=== PATIENT | female | born 2000 | race Hispanic/Latino ===

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

== ENCOUNTER 2022-02-06 18:58 | Emergency (ER) | payer OTHER ==
--- OUTSIDE RECORDS SUMMARY | 2022-02-06 19:03 | XMS REPORT | Continuity of Care Document ---
:2000 Author Organization [facility] t Address [address] [place] [address] [address] [place] [address] Care Team Providers Name Role Phone Jerellavinia Nikki Primary Care Physician Keli Attending Clinician Unavailable Nikki Upton MD Attending Clinician Nikki UPTON Attending Clinician Unavailable Doctor Unassigned, Name Attending Clinician Unavailable Chuck DUNBAR Attending Clinician CHUCK Attending Clinician Unavailable Mary Rudolph Attending Clinician Payers Payer Name Policy Type Policy Number Effective Date Expiration Date S ource Problems Condition Condition Condition Status Onset Resolution Last Treating Co mments Source Name Details Category Date Date Treatment Clinician Date No known No known Disease Unive rs active active ity of problems problems [facility] Allergies, Adverse Reactions, Alerts Allergy Allergy Status Severity Reaction(s) Onset Inactive Treating Comm ents Source Name Type Date Date Clinician Azithrom Propensi Active Rash Univer s ycin ty to 02-13 ity of adverse 00:00: [place] reaction 00 Medical s Branch AZITHROM DRUG Active Rash Univers YCIN INGREDI 02-13 ity of 00:00: [place] 00 Medical Branch Zithroma Adverse Active rash, Common x Reaction itching and Spi rit swelling - [facility] Social History Social Habit Start Date Stop Date Quantity Comments Source Exposure to Not sure [facility]-CoV-2 [place] [facility] (event) Branch Alcohol intake 2021-04-22 2021-04-22 Current University of 00:00:00 00:00:00 non-drinker of [facility] alcohol Branch (finding) Tobacco use and 2012-11-06 2012-11-06 Never used Universit y of exposure 00:00:00 00:00:00 [facility] Tobacco Comment 2012-11-06 2012-11-06 N/A Universit y of 00:00:00 00:00:00 [facility] Sex Assigned At [birth year] Universit y of 00:00:00 00:00:00 [facility] Smoking Status Start Date Stop Date Source Never smoker [facility] Medications Ordered Filled Start Stop Current Ordering Indication Dosage Frequency Signature Comments Components Source Medication Medication Date Date Medication? Clinician (SIG) Name Name ketorolac 2019-08- No 15mg 15 mg, Unive rs (TORADOL) 09-16 Slow IV ity of injection 01:26: 01:42 Push, [place] 15 mg 00 :00 ONCE, 1 Medical dose, [facility] Branch 07/16/20 at 1930, RADHA
Fa culty member approving Restricted medication : ANDREW WOODS ondansetron 2019-08- No 4mg 4 mg, Slow Univers (ZOFRAN 09-16 IV Push, ity of (PF)) 00:10: 01:01 ONCE, 1 [place] injection 4 00 :00 dose, [facility] ical mg 07/16/20 Branch at 1815, RADHA famotidine 2019-08 2020- No 20mg 20 mg, Univ ers (PEPCID -07-17 Slow IV ity of (PF)) 00:10: 01:02 Push, [place] injection 00 :00 ONCE, 1 Medical 20 mg dose, [facility] Branch 07/16/20 at 1815, RADHA famotidine 2019-08 Yes [id number] 40mg Take 1 Univers (PEPCID) 40 1-19 tablet by ity of mg tablet 00:00: mouth [place] 00 daily. Medical Branch ondansetron 2019-08 Yes [id number] 4mg Take 1 Univers (ZOFRAN) 4 1-19 tablet by ity of mg tablet 00:00: mouth [place] 00 every 8 Medical (eight) Branch hours as needed for Nausea and Vomiting (N/V). methocarbam 2020- Yes [id number] 500mg Take 1 Univers oL 1-19 tablet by ity of (ROBAXIN) 00:00: mouth 3 [place] 500 mg 00 (three) Medical tablet times Branch daily as needed for Pain (scale 4-6). ibuprofen 2019- Yes [id number] 600mg Take 1 Univers 600 mg 1-19 tablet by ity of tablet 00:00: mouth [place] 00 every 8 Medical (eight) Branch hours as needed for Pain (scale 4-6). famotidine 2019- Yes [id number] 40mg Take 1 Univers (PEPCID) 40 1-19 tablet by ity of mg tablet 00:00: mouth [place] 00 daily. Medical Branch ondansetron 2019-08 Yes [id number] 4mg Take 1 Univers (ZOFRAN) 4 1-19 tablet by ity of mg tablet 00:00: mouth [place] 00 every 8 Medical (eight) Branch hours as needed for Nausea and Vomiting (N/V). methocarbam 2019- Yes [id number] 500mg Take 1 Univers oL 1-19 tablet by ity of (ROBAXIN) 00:00: mouth 3 [place] 500 mg 00 (three) Medical tablet times Branch daily as needed for Pain (scale 4-6). ibuprofen 2019- Yes [id number] 600mg Take 1 Univers 600 mg 1-19 tablet by ity of tablet 00:00: mouth [place] 00 every 8 Medical (eight) Branch hours as needed for Pain (scale 4-6). famotidine 2020- Yes [id number] 40mg Take 1 Univers (PEPCID) 40 1-19 tablet by ity of mg tablet 00:00: mouth [place] 00 daily. Medical Branch ondansetron 2019- Yes [id number] 4mg Take 1 Univers (ZOFRAN) 4 1-19 tablet by ity of mg tablet 00:00: mouth [place] 00 every 8 Medical (eight) Branch hours as needed for Nausea and Vomiting (N/V). methocarbam 2020- Yes [id number] 500mg Take 1 Univers oL 1-19 tablet by ity of (ROBAXIN) 00:00: mouth 3 [place] 500 mg 00 (three) Medical tablet times Branch daily as needed for Pain (scale 4-6). ibuprofen 2019-08 Yes [id number] 600mg Take 1 Univers 600 mg 1-19 tablet by ity of tablet 00:00: mouth [place] 00 every 8 Medical (eight) Branch hours as needed for Pain (scale 4-6). famotidine 2019-08 Yes [id number] 40mg Take 1 Univers (PEPCID) 40 1-19 tablet by ity of mg tablet 00:00: mouth [place] 00 daily. Medical Branch ondansetron 2019-08 Yes [id number] 4mg Take 1 Univers (ZOFRAN) 4 1-19 tablet by ity of mg tablet 00:00: mouth [place] 00 every 8 Medical (eight) Branch hours as needed for Nausea and Vomiting (N/V). methocarbam 2019-08 Yes [id number] 500mg Take 1 Univers oL 1-19 tablet by ity of (ROBAXIN) 00:00: mouth 3 [place] 500 mg 00 (three) Medical tablet times Branch daily as needed for Pain (scale 4-6). ibuprofen 2019-08 Yes [id number] 600mg Take 1 Univers 600 mg 1-19 tablet by ity of tablet 00:00: mouth [place] 00 every 8 Medical (eight) Branch hours as needed for Pain (scale 4-6). famotidine 2019-08 Yes [id number] 40mg Take 1 Univers (PEPCID) 40 1-19 tablet by ity of mg tablet 00:00: mouth [place] 00 daily. Medical Branch ondansetron 2019-08 Yes [id number] 4mg Take 1 Univers (ZOFRAN) 4 1-19 tablet by ity of mg tablet 00:00: mouth [place] 00 every 8 Medical (eight) Branch hours as needed for Nausea and Vomiting (N/V). methocarbam 2019-08 Yes [id number] 500mg Take 1 Univers oL 1-19 tablet by ity of (ROBAXIN) 00:00: mouth 3 [place] 500 mg 00 (three) Medical tablet times Branch daily as needed for Pain (scale 4-6). ibuprofen 2019-08 Yes [id number] 600mg Take 1 Univers 600 mg 1-19 tablet by ity of tablet 00:00: mouth [place] 00 every 8 Medical (eight) Branch hours as needed for Pain (scale 4-6). famotidine 2019- Yes [id number] 40mg Take 1 Univers (PEPCID) 40 1-19 tablet by ity of mg tablet 00:00: mouth [place] 00 daily. Medical Branch ondansetron 2019-08 Yes [id number] 4mg Take 1 Univers (ZOFRAN) 4 1-19 tablet by ity of mg tablet 00:00: mouth [place] 00 every 8 Medical (eight) Branch hours as needed for Nausea and Vomiting (N/V). methocarbam 2019-08 Yes [id number] 500mg Take 1 Univers oL 1-19 tablet by ity of (ROBAXIN) 00:00: mouth 3 [place] 500 mg 00 (three) Medical tablet times Branch daily as needed for Pain (scale 4-6). ibuprofen 2019-08 Yes [id number] 600mg Take 1 Univers 600 mg 1-19 tablet by ity of tablet 00:00: mouth [place] 00 every 8 Medical (eight) Branch hours as needed for Pain (scale 4-6). famotidine 2019-08 Yes [id number] 40mg Take 1 Univers (PEPCID) 40 1-19 tablet by ity of mg tablet 00:00: mouth [place] 00 daily. Medical Branch ondansetron 2019-08 Yes [id number] 4mg Take 1 Univers (ZOFRAN) 4 1-19 tablet by ity of mg tablet 00:00: mouth [place] 00 every 8 Medical (eight) Branch hours as needed for Nausea and Vomiting (N/V). methocarbam 2019-08 Yes [id number] 500mg Take 1 Univers oL 1-19 tablet by ity of (ROBAXIN) 00:00: mouth 3 [place] 500 mg 00 (three) Medical tablet times Branch daily as needed for Pain (scale 4-6). ibuprofen 2019-08 Yes [id number] 600mg Take 1 Univers 600 mg 1-19 tablet by ity of tablet 00:00: mouth [place] 00 every 8 Medical (eight) Branch hours as needed for Pain (scale 4-6). Flagyl Flagyl 2019- No Anjali 1 tablet Com mon 12-26 [facility] 00:00: 00:00 - [facility] 00 :00 [facility] No known No Univers medications ity [facility] No known No Univers medications ity [facility] Immunizations Ordered Immunization Filled Immunization Date Status Commen ts Source Name Name Meningococcal 2012-11-06 Completed University of Polysaccharide 00:00:00 [place] Medi arsen (groups A, C, Y and Branc h W-135) conjugate vaccine (MCV4P) TDAP 2012-11-06 Completed University of 00:00:00 [facility] Meningococcal 2012-11-06 Completed University of Polysaccharide 00:00:00 [place] Medi arsen (groups A, C, Y and Branc h W-135) conjugate vaccine (MCV4P) TDAP 2012-11-06 Completed University of 00:00:00 [facility] Meningococcal 2012-11-06 Completed University of Polysaccharide 00:00:00 [place] Medi arsen (groups A, C, Y and Branc h W-135) conjugate vaccine (MCV4P) TDAP 2012-11-06 Completed University of 00:00:00 [facility] Meningococcal 2012-11-06 Completed University of Polysaccharide 00:00:00 [place] Medi arsen (groups A, C, Y and Branc h W-135) conjugate vaccine (MCV4P) TDAP 2012-11-06 Completed University of 00:00:00 [facility] Meningococcal 2012-11-06 Completed University of Polysaccharide 00:00:00 [place] Medi arsen (groups A, C, Y and Branc h W-135) conjugate vaccine (MCV4P) TDAP 2012-11-06 Completed University of 00:00:00 [facility] Meningococcal 2012-11-06 Completed University of Polysaccharide 00:00:00 [place] Medi arsen (groups A, C, Y and Branc h W-135) conjugate vaccine (MCV4P) TDAP 2012-11-06 Completed University of 00:00:00 [facility] Meningococcal 2012-11-06 Completed University of Polysaccharide 00:00:00 [place] Medi arsen (groups A, C, Y and Branc h W-135) conjugate vaccine (MCV4P) TDAP 2012-11-06 Completed University of 00:00:00 [facility] Meningococcal 2012-11-06 Completed University of Polysaccharide 00:00:00 [place] Medi arsen (groups A, C, Y and Branc h W-135) conjugate vaccine (MCV4P) TDAP 2012-11-06 Completed University of 00:00:00 [facility] Meningococcal 2012-11-06 Completed University of Polysaccharide 00:00:00 [place] Medi arsen (groups A, C, Y and Branc h W-135) conjugate vaccine (MCV4P) TDAP 2012-11-06 Completed University of 00:00:00 [facility] Varicella 2007-09-13 Completed University of (varivax)(chicken 00:00:00 [place] M edical pox) Branch Varicella 2007-09-13 Completed University of (varivax)(chicken 00:00:00 [place] [facility] edical pox) Branch Varicella 2007-09-13 Completed University of (varivax)(chicken 00:00:00 [place] [facility] edical pox) Branch Varicella 2007-09-13 Completed University of (varivax)(chicken 00:00:00 [place] [facility] edical pox) Branch Varicella 2007-09-13 Completed University of (varivax)(chicken 00:00:00 [place] [facility] edical pox) Branch Varicella 2007-09-13 Completed University of (varivax)(chicken 00:00:00 [place] [facility] edical pox) Branch Varicella 2007-09-13 Completed University of (varivax)(chicken 00:00:00 [place] [facility] edical pox) Branch Varicella 2007-09-13 Completed University of (varivax)(chicken 00:00:00 [place] [facility] edical pox) Branch Varicella 2007-09-13 Completed University of (varivax)(chicken 00:00:00 [place] [facility] ed[facility] pox) Branch HEPATITIS A 2006-11-20 Completed University of 00:00:00 [facility] HEPATITIS A 2006-11-20 Completed University of 00:00:00 [facility] HEPATITIS A 2006-11-20 Completed University of 00:00:00 [facility] HEPATITIS A 2006-11-20 Completed University of 00:00:00 [facility] HEPATITIS A 2006-11-20 Completed University of 00:00:00 [facility] HEPATITIS A 2006-11-20 Completed University of 00:00:00 [facility] HEPATITIS A 2006-11-20 Completed University of 00:00:00 [facility] HEPATITIS A 2006-11-20 Completed University of 00:00:00 [facility] HEPATITIS A 2006-11-20 Completed University of 00:00:00 [facility] HEPATITIS A 2006-02-23 Completed University of 00:00:00 [facility] HEPATITIS A 2006-02-23 Completed University of 00:00:00 [facility] HEPATITIS A 2006-02-23 Completed University of 00:00:00 [facility] HEPATITIS A 2006-02-23 Completed University of 00:00:00 [facility] HEPATITIS A 2006-02-23 Completed University of 00:00:00 [facility] HEPATITIS A 2006-02-23 Completed University of 00:00:00 [facility] HEPATITIS A 2006-02-23 Completed University of 00:00:00 [facility] Branch HEPATITIS A 2006-02-23 Completed University of 00:00:00 [facility] Branch HEPATITIS A 2006-02-23 Completed University of 00:00:00 [facility] Branch DTAP 2005-07-25 Completed University of 00:00:00 [facility] Branch MMR 2005-07-25 Completed University of 00:00:00 [place] [facility] Polio (IPV/OPV) 2005-07-25 Completed Universit y of 00:00:00 [facility] Branch DTAP 2005-07-25 Completed University of 00:00:00 [facility] MMR 2005-07-25 Completed University of 00:00:00 [facility] Branch Polio (IPV/OPV) 2005-07-25 Completed Universit y of 00:00:00 [facility] DTAP 2005-07-25 Completed University of 00:00:00 [facility] MMR 2005-07-25 Completed University of 00:00:00 [place] [facility] Polio (IPV/OPV) 2005-07-25 Completed Universit y of 00:00:00 [facility] Branch DTAP 2005-07-25 Completed University of 00:00:00 [facility] MMR 2005-07-25 Completed University of 00:00:00 [place] [facility] Polio (IPV/OPV) 2005-07-25 Completed Universit y of 00:00:00 [facility] Branch DTAP 2005-07-25 Completed University of 00:00:00 [facility] MMR 2005-07-25 Completed University of 00:00:00 [place] [facility] Polio (IPV/OPV) 2005-07-25 Completed Universit y of 00:00:00 [facility] Branch DTAP 2005-07-25 Completed University of 00:00:00 [facility] MMR 2005-07-25 Completed University of 00:00:00 [place] [facility] Polio (IPV/OPV) 2005-07-25 Completed Universit y of 00:00:00 [facility] DTAP 2005-07-25 Completed University of 00:00:00 [facility] MMR 2005-07-25 Completed University of 00:00:00 [place] [facility] Polio (IPV/OPV) 2005-07-25 Completed Universit y of 00:00:00 [facility] DTAP 2005-07-25 Completed University of 00:00:00 [facility] MMR 2005-07-25 Completed University of 00:00:00 [facility] Polio (IPV/OPV) 2005-07-25 Completed Universit y of 00:00:00 [facility] DTAP 2005-07-25 Completed University of 00:00:00 [facility] MMR 2005-07-25 Completed University of 00:00:00 [facility] Polio (IPV/OPV) 2005-07-25 Completed Universit y of 00:00:00 [facility] Pneumococcal 7 2003-03-14 Completed University of Conjugate, PCV7 00:00:00 [place] [facility] (Prevnar7) Branch Pneumococcal 7 2003-03-14 Completed University of Conjugate, PCV7 00:00:00 [place] [facility] ical (Prevnar7) Branch Pneumococcal 7 2003-03-14 Completed University of Conjugate, PCV7 00:00:00 [place] [facility] ical (Prevnar7) Branch Pneumococcal 7 2003-03-14 Completed University of Conjugate, PCV7 00:00:00 [place] [facility] ical (Prevnar7) Branch Pneumococcal 7 2003-03-14 Completed University of Conjugate, PCV7 00:00:00 [place] [facility] ical (Prevnar7) Branch Pneumococcal 7 2003-03-14 Completed University of Conjugate, PCV7 00:00:00 [place] [facility] ical (Prevnar7) Branch Pneumococcal 7 2003-03-14 Completed University of Conjugate, PCV7 00:00:00 [place] [facility] ical (Prevnar7) Branch Pneumococcal 7 2003-03-14 Completed University of Conjugate, PCV7 00:00:00 [place] [facility] ical (Prevnar7) Branch Pneumococcal 7 2003-03-14 Completed University of Conjugate, PCV7 00:00:00 [place] [facility] ical (Prevnar7) Branch DTAP 2002-11-12 Completed University of 00:00:00 [facility] Pneumococcal 7 2002-11-12 Completed University of Conjugate, PCV7 00:00:00 [place] [facility] ical (Prevnar7) Branch DTAP 2002-11-12 Completed University of 00:00:00 [facility] Pneumococcal 7 2002-11-12 Completed University of Conjugate, PCV7 00:00:00 [place] [facility] ical (Prevnar7) Branch DTAP 2002-11-12 Completed University of 00:00:00 [facility] Pneumococcal 7 2002-11-12 Completed University of Conjugate, PCV7 00:00:00 [place] [facility] ical (Prevnar7) Branch DTAP 2002-11-12 Completed University of 00:00:00 [facility] Pneumococcal 7 2002-11-12 Completed University of Conjugate, PCV7 00:00:00 [place] [facility] (Prevnar7) Branch DTAP 2002-11-12 Completed University of 00:00:00 [facility] Pneumococcal 7 2002-11-12 Completed University of Conjugate, PCV7 00:00:00 [place] [facility] (Prevnar7) Branch DTAP 2002-11-12 Completed University of 00:00:00 [facility] Pneumococcal 7 2002-11-12 Completed University of Conjugate, PCV7 00:00:00 [place] [facility] (Prevnar7) Branch DTAP 2002-11-12 Completed University of 00:00:00 [facility] Pneumococcal 7 2002-11-12 Completed University of Conjugate, PCV7 00:00:00 [place] [facility] (Prevnar7) Branch DTAP 2002-11-12 Completed University of 00:00:00 [facility] Pneumococcal 7 2002-11-12 Completed University of Conjugate, PCV7 00:00:00 [place] [facility] (Prevnar7) Branch DTAP 2002-11-12 Completed University of 00:00:00 [facility] Pneumococcal 7 2002-11-12 Completed University of Conjugate, PCV7 00:00:00 [place] [facility] (Prevnar7) Branch HIB 4 Dose Schedule 2002-07-23 Completed Unive rsity of 00:00:00 [facility] MMR 2002-07-23 Completed University of 00:00:00 [facility] Varicella 2002-07-23 Completed University of (varivax)(chicken 00:00:00 [place] [facility] pox) Branch HIB 4 Dose Schedule 2002-07-23 Completed Unive rsity of 00:00:00 [facility] MMR 2002-07-23 Completed University of 00:00:00 [facility] Varicella 2002-07-23 Completed University of (varivax)(chicken 00:00:00 [place] [facility] pox) Branch HIB 4 Dose Schedule 2002-07-23 Completed Unive rsity of 00:00:00 [facility] MMR 2002-07-23 Completed University of 00:00:00 [facility] Varicella 2002-07-23 Completed University of (varivax)(chicken 00:00:00 [place] M edical pox) Branch HIB 4 Dose Schedule 2002-07-23 Completed Unive rsity of 00:00:00 [facility] MMR 2002-07-23 Completed University of 00:00:00 [facility] Varicella 2002-07-23 Completed University of (varivax)(chicken 00:00:00 [place] M edical pox) Branch HIB 4 Dose Schedule 2002-07-23 Completed Unive rsity of 00:00:00 [facility] MMR 2002-07-23 Completed University of 00:00:00 [facility] Varicella 2002-07-23 Completed University of (varivax)(chicken 00:00:00 [place] M edical pox) Branch HIB 4 Dose Schedule 2002-07-23 Completed Unive rsity of 00:00:00 [facility] MMR 2002-07-23 Completed University of 00:00:00 [facility] Varicella 2002-07-23 Completed University of (varivax)(chicken 00:00:00 [place] M edical pox) Branch HIB 4 Dose Schedule 2002-07-23 Completed Unive rsity of 00:00:00 [facility] MMR 2002-07-23 Completed University of 00:00:00 [facility] Varicella 2002-07-23 Completed University of (varivax)(chicken 00:00:00 [place] M edical pox) Branch HIB 4 Dose Schedule 2002-07-23 Completed Unive rsity of 00:00:00 [facility] MMR 2002-07-23 Completed University of 00:00:00 [facility] Varicella 2002-07-23 Completed University of (varivax)(chicken 00:00:00 [place] M edical pox) Branch HIB 4 Dose Schedule 2002-07-23 Completed Unive rsity of 00:00:00 [facility] MMR 2002-07-23 Completed University of 00:00:00 [facility] Varicella 2002-07-23 Completed University of (varivax)(chicken 00:00:00 [place] M edical pox) Branch Hep B, Adol or Pedi 2002-04-19 Completed Unive rsity of Dosage 00:00:00 [facility] Polio (IPV/OPV) 2002-04-19 Completed Universit y of 00:00:00 [facility] Hep B, Adol or Pedi 2002-04-19 Completed Unive rsity of Dosage 00:00:00 [facility] Polio (IPV/OPV) 2002-04-19 Completed Universit y of 00:00:00 [place] [facility] Hep B, Adol or Pedi 2002-04-19 Completed Unive rsity of Dosage 00:00:00 [facility] Polio (IPV/OPV) 2002-04-19 Completed Universit y of 00:00:00 [facility] Hep B, Adol or Pedi 2002-04-19 Completed Unive rsity of Dosage 00:00:00 [facility] Polio (IPV/OPV) 2002-04-19 Completed Universit y of 00:00:00 [facility] Hep B, Adol or Pedi 2002-04-19 Completed Unive rsity of Dosage 00:00:00 [facility] Polio (IPV/OPV) 2002-04-19 Completed Universit y of 00:00:00 [facility] Hep B, Adol or Pedi 2002-04-19 Completed Unive rsity of Dosage 00:00:00 [facility] Polio (IPV/OPV) 2002-04-19 Completed Universit y of 00:00:00 [place] [facility] Hep B, Adol or Pedi 2002-04-19 Completed Unive rsity of Dosage 00:00:00 [facility] Polio (IPV/OPV) 2002-04-19 Completed Universit y of 00:00:00 [facility] Hep B, Adol or Pedi 2002-04-19 Completed Unive rsity of Dosage 00:00:00 [facility] Polio (IPV/OPV) 2002-04-19 Completed Universit y of 00:00:00 [facility] Hep B, Adol or Pedi 2002-04-19 Completed Unive rsity of Dosage 00:00:00 [facility] Polio (IPV/OPV) 2002-04-19 Completed Universit y of 00:00:00 [facility] DTAP 2002-02-19 Completed University of 00:00:00 [facility] HIB 4 Dose Schedule 2002-02-19 Completed Unive rsity of 00:00:00 [facility] Hep B, Adol or Pedi 2002-02-19 Completed Unive rsity of Dosage 00:00:00 [facility] DTAP 2002-02-19 Completed University of 00:00:00 [place] [facility] HIB 4 Dose Schedule 2002-02-19 Completed Unive rsity of 00:00:00 [place] [facility] Hep B, Adol or Pedi 2002-02-19 Completed Unive rsity of Dosage 00:00:00 [place] [facility] DTAP 2002-02-19 Completed University of 00:00:00 [place] [facility] HIB 4 Dose Schedule 2002-02-19 Completed Unive rsity of 00:00:00 [place] [facility] Hep B, Adol or Pedi 2002-02-19 Completed Unive rsity of Dosage 00:00:00 [place] [facility] DTAP 2002-02-19 Completed University of 00:00:00 [place] [facility] HIB 4 Dose Schedule 2002-02-19 Completed Unive rsity of 00:00:00 [place] [facility] Hep B, Adol or Pedi 2002-02-19 Completed Unive rsity of Dosage 00:00:00 [place] [facility] DTAP 2002-02-19 Completed University of 00:00:00 [place] [facility] HIB 4 Dose Schedule 2002-02-19 Completed Unive rsity of 00:00:00 [place] [facility] Hep B, Adol or Pedi 2002-02-19 Completed Unive rsity of Dosage 00:00:00 [place] [facility] DTAP 2002-02-19 Completed University of 00:00:00 [place] [facility] HIB 4 Dose Schedule 2002-02-19 Completed Unive rsity of 00:00:00 [facility] Hep B, Adol or Pedi 2002-02-19 Completed Unive rsity of Dosage 00:00:00 [facility] DTAP 2002-02-19 Completed [facility] of 00:00:00 [facility] HIB 4 Dose Schedule 2002-02-19 Completed Unive rsity of 00:00:00 [facility] Hep B, Adol or Pedi 2002-02-19 Completed Unive rsity of Dosage 00:00:00 [facility] DTAP 2002-02-19 Completed University of 00:00:00 [facility] HIB 4 Dose Schedule 2002-02-19 Completed Unive rsity of 00:00:00 [facility] Hep B, Adol or Pedi 2002-02-19 Completed Unive rsity of Dosage 00:00:00 [facility] DTAP 2002-02-19 Completed University of 00:00:00 [facility] HIB 4 Dose Schedule 2002-02-19 Completed Unive rsity of 00:00:00 [facility] Hep B, Adol or Pedi 2002-02-19 Completed Unive rsity of Dosage 00:00:00 [facility] HIB 4 Dose Schedule 2001 Completed Unive rsity of 00:00:00 [facility] Pneumococcal 7 2001 Completed University of Conjugate, PCV7 00:00:00 [facility] (Pre[facility] Polio (IPV/OPV) 2001 Completed Universit y of 00:00:00 [facility] DTAP 2001 Completed University of 00:00:00 [facility] HIB 4 Dose Schedule 2001 Completed Unive rsity of 00:00:00 [facility] Pneumococcal 7 2001 Completed University of Conjugate, PCV7 00:00:00 [facility] (Pre[facility] Polio (IPV/OPV) 2001 Completed Universit y of 00:00:00 [facility] DTAP 2001 Completed University of 00:00:00 [facility] HIB 4 Dose Schedule 2001 Completed Unive rsity of 00:00:00 [facility] Pneumococcal 7 2001 Completed University of Conjugate, PCV7 00:00:00 [facility] (Pre[facility] Polio (IPV/OPV) 2001 Completed Universit y of 00:00:00 [facility] DTAP 2001 Completed University of 00:00:00 [facility] HIB 4 Dose Schedule 2001 Completed Unive rsity of 00:00:00 [facility] Pneumococcal 7 2001 Completed University of Conjugate, PCV7 00:00:00 [facility] (Pre[facility] Polio (IPV/OPV) 2001 Completed Universit y of 00:00:00 [facility] DTAP 2001 Completed University of 00:00:00 [facility] HIB 4 Dose Schedule 2001 Completed Unive rsity of 00:00:00 [facility] Pneumococcal 7 2001 Completed University of Conjugate, PCV7 00:00:00 [facility] (Pre[facility] Polio (IPV/OPV) 2001 Completed Universit y of 00:00:00 [facility] DTAP 2001 Completed University of 00:00:00 [facility] HIB 4 Dose Schedule 2001 Completed Unive rsity of 00:00:00 [facility] Pneumococcal 7 2001 Completed University of Conjugate, PCV7 00:00:00 [facility] (Pre[facility] Polio (IPV/OPV) 2001 Completed Universit y of 00:00:00 [facility] DTAP 2001 Completed University of 00:00:00 [facility] HIB 4 Dose Schedule 2001 Completed Unive rsity of 00:00:00 [facility] Pneumococcal 7 2001 Completed University of Conjugate, PCV7 00:00:00 [facility] (Pre[facility] Polio (IPV/OPV) 2001 Completed Universit y of 00:00:00 [facility] DTAP 2001 Completed University of 00:00:00 [facility] HIB 4 Dose Schedule 2001 Completed Unive rsity of 00:00:00 [facility] Pneumococcal 7 2001 Completed University of Conjugate, PCV7 00:00:00 [facility] (Pre[facility] Polio (IPV/OPV) 2001 Completed Universit y of 00:00:00 [facility] DTAP 2001 Completed University of 00:00:00 [facility] HIB 4 Dose Schedule 2001 Completed Unive rsity of 00:00:00 [facility] Pneumococcal 7 2001 Completed University of Conjugate, PCV7 00:00:00 [facility] (Pre[facility] Polio (IPV/OPV) 2001 Completed Universit y of 00:00:00 [facility] DTAP 2001 Completed University of 00:00:00 [facility] HIB 4 Dose Schedule 2001 Completed Unive rsity of 00:00:00 [facility] Pneumococcal 7 2001 Completed University of Conjugate, PCV7 00:00:00 [facility] (Pre[facility] Polio (IPV/OPV) 2001 Completed Universit y of 00:00:00 [facility] DTAP 2001 Completed University of 00:00:00 [facility] HIB 4 Dose Schedule 2001 Completed Unive rsity of 00:00:00 [facility] Pneumococcal 7 2001 Completed University of Conjugate, PCV7 00:00:00 [facility] (Pre[facility] Polio (IPV/OPV) 2001 Completed Universit y of 00:00:00 [facility] DTAP 2001 Completed University of 00:00:00 [facility] HIB 4 Dose Schedule 2001 Completed Unive rsity of 00:00:00 [facility] Pneumococcal 7 2001 Completed University of Conjugate, PCV7 00:00:00 [facility] (Pre[facility] Polio (IPV/OPV) 2001 Completed Universit y of 00:00:00 [facility] DTAP 2001 Completed University of 00:00:00 [facility] HIB 4 Dose Schedule 2001 Completed Unive rsity of 00:00:00 [facility] Pneumococcal 7 2001 Completed University of Conjugate, PCV7 00:00:00 [place] [facility] (Pre[facility] Polio (IPV/OPV) 2001 Completed Universit y of 00:00:00 [facility] DTAP 2001 Completed University of 00:00:00 [facility] HIB 4 Dose Schedule 2001 Completed Unive rsity of 00:00:00 [facility] Pneumococcal 7 2001 Completed University of Conjugate, PCV7 00:00:00 [place] [facility] (Prevnar7[facility] Polio (IPV/OPV) 2001 Completed Universit y of 00:00:00 [facility] DTAP 2001 Completed University of 00:00:00 [facility] HIB 4 Dose Schedule 2001 Completed Unive rsity of 00:00:00 [facility] Pneumococcal 7 2001 Completed University of Conjugate, PCV7 00:00:00 [place] [facility] (Prevn[facility] Polio (IPV/OPV) 2001 Completed Universit y of 00:00:00 [facility] DTAP 2001 Completed University of 00:00:00 [facility] HIB 4 Dose Schedule 2001 Completed Unive rsity of 00:00:00 [facility] Pneumococcal 7 2001 Completed University of Conjugate, PCV7 00:00:00 [facility] (Pre[facility] Polio (IPV/OPV) 2001 Completed Universit y of 00:00:00 [facility] DTAP 2001 Completed University of 00:00:00 [facility] HIB 4 Dose Schedule 2001 Completed Unive rsity of 00:00:00 [facility] Pneumococcal 7 2001 Completed University of Conjugate, PCV7 00:00:00 [facility] (Pre[facility] Polio (IPV/OPV) 2001 Completed Universit y of 00:00:00 [facility] DTAP 2001 Completed University of 00:00:00 [facility] HIB 4 Dose Schedule 2001 Completed Unive rsity of 00:00:00 [facility] Pneumococcal 7 2001 Completed University of Conjugate, PCV7 00:00:00 [facility] ical (Prevnar7) Branch Polio (IPV/OPV) 2001 Completed Universit y of 00:00:00 [facility] DTAP 2001 Completed University of 00:00:00 [facility] Hep B, Adol or Pedi 2001 Completed Unive rsity of Dosage 00:00:00 [facility] Hep B, Adol or Pedi 2001 Completed Unive rsity of Dosage 00:00:00 [facility] Hep B, Adol or Pedi 2001 Completed Unive rsity of Dosage 00:00:00 [facility] Hep B, Adol or Pedi 2001 Completed Unive rsity of Dosage 00:00:00 [facility] Hep B, Adol or Pedi 2001 Completed Unive rsity of Dosage 00:00:00 [facility] Hep B, Adol or Pedi 2001 Completed Unive rsity of Dosage 00:00:00 [facility] Hep B, Adol or Pedi 2001 Completed Unive rsity of Dosage 00:00:00 [facility] Hep B, Adol or Pedi 2001 Completed Unive rsity of Dosage 00:00:00 [facility] Hep B, Adol or Pedi 2001 Completed Unive rsity of Dosage 00:00:00 [facility] Vital Signs Vital Name Observation Time Observation Value Comments Source Systolic blood 2021-04-22 20:24:00 122 mm[Hg] Univer sity of pressure [facility] Diastolic blood 2021-04-22 20:24:00 70 mm[Hg] Unive rsity of pressure [facility] Heart rate 2021-04-22 20:24:00 66 /min Universi ty of [facility] Body temperature 2021-04-22 20:24:00 37 Kiley Univ ersity of [facility] Respiratory rate 2021-04-22 20:24:00 18 /min Univ ersity of [facility] Body height 2021-04-22 20:24:00 162.6 cm Universi ty of [facility] Body weight 2021-04-22 20:24:00 73.483 kg Universi ty of [facility] BMI 2021-04-22 20:24:00 27.81 kg/m2 Universi ty of [facility] Diastolic blood 2020-07-17 01:00:00 63 mm[Hg] Unive rsity of pressure [facility] Heart rate 2020-07-17 01:00:00 72 /min Universi ty of [facility] Respiratory rate 2020-07-17 01:00:00 18 /min Univ ersity of [facility] Oxygen saturation in 2020-07-17 01:00:00 99 /min University Arterial blood by [facility] Pulse oximetry Branch Systolic blood 2020-07-17 01:00:00 102 mm[Hg] Univer sity of pressure [facility] Body temperature 2020-07-16 23:19:00 37.06 Kiley Univ ersity of [facility] Body weight 2020-07-16 23:19:00 63.504 kg Universi ty of [facility] Systolic blood 2020-02-26 06:03:00 134 mm[Hg] Univer sity of pressure [facility] Diastolic blood 2020-02-26 06:03:00 81 mm[Hg] Unive rsity of pressure [facility] Heart rate 2020-02-26 06:03:00 96 /min Universi ty of [facility] Body temperature 2020-02-26 06:03:00 37.39 [place] Univ ersity of [facility] Respiratory rate 2020-02-26 06:03:00 18 /min [facility] Oxygen saturation in 2020-02-26 06:03:00 99 /min [facility] Arterial blood by [facility] Pulse oximetry Branch Body weight 2020-02-26 05:50:00 63.504 kg [facility] Procedures Procedure Date / Time Performing Clinician Source Performed CONSENT/REFUSAL FOR 2021-04-22 19:55:34 Doctor Unasswilliam, [facility] DIAGNOSIS AND TREATMENT [facility] XR ABDOMEN ACUTE SERIES 2020-07-17 00:33:12 [facility] LUMBAR SPINE 3 VW 2020-07-17 00:33:12 [place] [facility] POCT TEST 2020-07-16 23:42:00 Chuck [facility] LIPASE 2020-07-16 23:40:00 [facility]EL 2020-07-16 23:40:00 [facility] ([id number]) (ALB,T.PRO,BILI [facility] T,BU/BC,ALT,AST,ALK PHOS) BASIC METABOLIC PANEL 2020-07-16 23:40:00 [facility] (NA, K, CL, CO2, GLUCOSE, Medica l Branch BUN, CREATININE, CA) CBC WITH DIFF 2020-07-16 23:40:00 [facility] URINALYSIS 2020-07-16 23:40:00 [facility] CONSENT/REFUSAL FOR 2020-07-16 23:11:01 Doctor Unasswilliam, [facility] DIAGNOSIS AND TREATMENT [place] [facility] XR CHEST 1 VW 2020-02-26 06:30:51 Tr Uribe [facility] COVID-19 (ID NOW RAPID 2020-02-26 06:05:00 Tr Uribe [facility] TESTING) [facility] POCT TEST 2020-02-26 06:04:00 Tr Uribe [facility] EKG-12 LEAD 2020-02-26 05:55:48 Tr Uribe [facility] ASSIGNMENT OF BENEFITS 2020-02-26 05:33:11 Doctor Unassigned, [place] [facility] [place] [facility] NOTICE OF PRIVACY 2020-02-26 05:32:57 Doctor Unasswilliam, [facility] EMERGENCY SERVICES 2020-02-25 05:01:00 Doctor Unassigned, Marce [facility] AGREEMENTS AND [facility] AUTHORIZATIONS Encounters Start End Encounter Admission Attending Care Care Encounter Source Date/Time Date/Time Type Type Clinicians Facility Department ID 2021-09-22 Outpatient Keli [facility] [id number] Common 12:49:12 Daina [id number] [facility] 2021-05-20 2021-05-20 [facility] [id number] Univers 00:00:00 00:00:00 Ayla Azar [id number] [id number] [address] 2021-04-22 2021-04-22 [facility] [id number] Univers 14:56:28 16:14:14 Visit Ayla Azar [id number] [place] [id number] [address] 2021-04-22 2021-04-22 Outpatient R AD, [facility] [id number] Univers 15:00:00 15:00:00 AYLA pittman of [facility] 2021-04-22 2021-04-22 Orders Doctor GALVAN [id number] Univers 00:00:00 00:00:00 Only Unassigned, PETER [id number] ity of [place] [facility] 4.2.7.2.686 Gustavo as [id number] [address] 2021-02-18 2021-02-18 Outpatient [facility] [id number] Common 00:00:00 00:00:00 [facility] 2020-07-16 2020-07-16 Emergency [facility] [id number] Univers 17:15:00 20:24:00 Shinnaya Azar [id number] i ty of [place] 4.2.7.2.686 [facility] [id number] [address] 2020-07-16 2020-07-16 Emergency X CHUCK, [facility] ERT [id number] Univers 17:11:00 17:11:00 SHINTA ity [facility] 2020-02-26 2020-02-26 Emergency [place], [facility] [id number] Univers 00:47:54 02:05:00 Tr Azar [id number] i ty of [place] 4.2.7.2.686 [facility] [id number] [address] 2020-02-26 2020-02-26 Emergency X [facility] ERT [id number] Univers 00:35:00 00:35:00 ity of [facility] 2020-02-25 2020-02-25 Orders Doctor GALVAN [id number] Univers 00:00:00 00:00:00 Only Unassigned, PETER [id number] ity of [place] [facility] 4.2.7.2.686 [facility] [id number] [address] 2018-12-25 2018-12-25 Outpatient Peewee Videst [id number] Common 15:25:00 15:25:00 [facility] 2018-12-18 2018-12-18 Outpatient Peewee [place] [id number] Common 11:20:00 11:20:00 [facility] Results Test Description Test Time Test Comments Results Result Comments Source Urinalysis 2020-07-17 00:20:00 Test Item Value Reference Range Interpretation Comme nts APPEARANCE (test code = Hazy Clear A 7399554528) COLOR (test code = 1046942170) Umu Yellow A PH (test code = 6674946341) 4.8-8.0 SP GRAVITY (test code = 1.003-1.030 2802278620) GLU U QUAL (test code = Normal Normal 0388329257) BLOOD (test code = 4965701331) Negative Negative INTERFERENCE FROM ASCORBIC ACID MAY CAUSE FALSE NEGATIVE RESULT KETONES (test code = 7160084843) Negative Negative PROTEIN (test code = 2887-8) Negative Negative UROBILIN (test code = Normal Normal 6108687161) BILIRUBIN (test code = Negative Negative 5449428290) NITRITE (test code = 7851826100) Negative Negative LEUK ALVIN (test code = Negative Negative 3454347929) RBC/HPF (test code = 5983500830) See_Comment [Automated message] The system which ge nerated this result transmit rogerio reference range: 0 - 3 HP F. The reference range was not used to interpret th is result as normal/abnormal . WBC/HPF (test code = 4081945797) See_Comment [Automated message] The system which ge nerated this result transmit rogerio reference range: 0 - 5 HP F. The reference range was not used to interpret th is result as normal/abnormal . BACTERIA (test code = Moderate Negative A 8572819459) MUCOUS (test code = 9286588108) Marked Negative LPF A SQ EPITH (test code = HPF 8009340330) CA OXALATE (test code = See_Comment H [Au tomated message] The 8086833091) system which ge nerated this result transmit rogerio reference range: <=1 HPF. The reference range was not u sed to interpret this result as normal/abnormal . Lab Interpretation (test code = Abnormal 33780-9) [facility] (NA, K, CL, CO2, GLUCOSE, BUN, CREATININE, CA)2020-07-17 00:04:00 Test Item Value Reference Range Interpretation Comments NA (test code = 138 mmol/L 135-145 6248947011) K (test code = 4.0 mmol/L 3.5-5 2690608062) CL (test code = 103 mmol/L 98-108 3506480788) CO2 TOTAL (test code = 27 mmol/L 23-31 0376849816) AGAP (test code = 2-16 2412726165) BUN (test code = 10 mg/dL 7-23 5155591059) GLUCOSE (test code = 91 mg/dL 70-110 4105309224) CREATININE (test code 0.70 mg/dL 0.5-1.04 = 6243729006) CALCIUM (test code = 9.9 mg/dL 8.6-10.6 3640141306) eGFR Calculation mL/min/1.73m2 (Non-) (test code = 6974726400) eGFR Calculation mL/min/1.73m2 () (test code = 7252565930) ROBBY (test code = ROBBY) Association of Glomerular Filtration Rate (GFR) and Staging of Kidney Disease* + -+ + ---+| GFR (mL/min/1.73 m2) ?| With Kidney Damage ?| ?Without Kidney Damage+ -------+ ------+ ---------+| ?>90 ?| ?Stage one ?| ? Normal ?+ --+ -+ ----+| ?60-89 ?| ?Stage two ?| ? Decreased GFR ? + -+ + ---+| ?30-59 ?| ?Stage three ?| ? Stage three ? + -+ + ---+| ?15-29 ?| ?Stage four ? | ? Stage four ?+ --+ -+ ----+| ?<15 (or dialysis) ? ?| ?Stage five ? | ? Stage five ?+ --+ -+ ----+ *Each stage assumes the associated GFR level has been in effect for at least three months. ?Stages 1 to 5, with or without kidney disease, indicate chronic kidney disease. Notes: Determination of stages one and two (with eGFR >59mL/min/1.73 m2) requires estimation of kidney damage for at least three months as defined by structural or functional abnormalities of the kidney, manifested by either:Pathological abnormalities or Markers of kidney damage (including abnormalities in the composition of the blood or urine or abnormalities in imaging tests). [facility] (ALB, T.PRO, BILI T, BU/BC, ALT, AST, ALK PHOS)2020-07-17 00:04:00 Test Item Value Reference Range Interpretation Comments TOTAL BILI (test code = 3416147246) 0.6 mg/dL 0.1-1.1 BILI UNCON (test code = 6480697396) 0.6 mg/dL 0.1-1.1 BILI CONJ (test code = 6633133884) 0.0 mg/dL 0-0.3 T PROTEIN (test code = 6045853671) 7.8 g/dL 6.3-8.2 ALBUMIN (test code = 8381263916) 4.4 g/dL 3.5-5 ALK PHOS (test code = 6221180572) 84 U/L 34-122 ALTv (test code = 1742-6) 35 U/L 5-35 AST(SGOT) (test code = 3720546000) 28 U/L 13-40 Lab Interpretation (test code = Normal 11508-3) [facility] [id number] 00:04:00 Test Item Value Reference Range Interpretation Comments LIPASE (test code = 0330950595) 87 U/L 0-220 Lab Interpretation (test code = Normal 71980-0) [facility] with [id number] 23:53:00 Test Item Value Reference Range Interpretation Comments WBC (test code = See_Comment [Automated 2249-2) message] The sy stem which generated this result transmitted reference range : 4.50 - 13.50 10*3/?L. The reference range was not used to interpret this result as normal/abnormal . RBC (test code = See_Comment [Automated 347-8) message] The sy stem which generated this result transmitted reference range : 4.10 - 5.10 10*6/?L. The reference range was not used to interpret this result as normal/abnormal . HGB (test code = 12.8 g/dL 12-16 718-7) HCT (test code = 39.0 % 36-45 4544-3) MCV (test code = 81.4 fL 78-95 787-2) MCH (test code = 26.7 pg 26-32 785-6) MCHC (test code = 32.8 g/dL 32-36 786-4) RDW-SD (test code = 38.7 fL 38.5-49 19690-6) RDW-CV (test code = 13.1 % 11.5-14 788-0) PLT (test code = See_Comment [Automated 057-3) message] The sy stem which generated this result transmitted reference range : 135 - 361 10*3/ ?L. The reference r cesar was not used to interpret this result as normal/abnormal . MPV (test code = 9.5 fL 9.4-13.3 71518-4) NRBC/100 WBC (test See_Comment [Automat ed code = 6497002377) message] The system which generated this result transmitted reference range : 0.0 - 10.0 /100 WBCs. The refer ence range was not u sed to interpret th is result as normal/abnormal . NRBC x10^3 (test code <0.01 See_Comment [Auto mated = 3669579238) message] The s ystem which generated this result transmitted reference range : 10*3/?L. The reference range was not used to interpret this result as normal/abnormal . GRAN MAT (NEUT) % 63.1 % (test code = 770-8) IMM GRAN % (test code 0.30 % = 2830212700) LYMPH % (test code = 27.4 % 736-9) MONO % (test code = 6.6 % 5905-5) EOS % (test code = 2.0 % 713-8) BASO % (test code = 0.6 % 706-2) GRAN MAT x10^3(ANC) 5.04 10*3/uL 1.5-10.3 (test code = 3057283155) IMM GRAN x10^3 (test <0.03 0-0.06 code = 5162764801) LYMPH x10^3 (test code 2.19 10*3/uL 0.7-7.4 = 731-0) MONO x10^3 (test code 0.53 10*3/uL 0-0.5 H = 742-7) EOS x10^3 (test code = 0.16 10*3/uL 0-0.4 711-2) BASO x10^3 (test code 0.05 10*3/uL 0-0.1 = 704-7) Lab Interpretation Abnormal (test code = 25242-6) [facility] [id number] 23:42:00 Test Item Value Reference Range Interpretation Comments POCT PREG (test code = 1605) negative On board controls acceptable with present C Line (test code = 3574) POCT PREG LOT # (test code = 3575) [id number] POCT PREG TEST DATE (test 2021-12-25 code = 3576) Lab Interpretation (test code = Normal 60246-9) [facility] (ID NOW RAPID TESTING)2020-02-26 06:32:00 Test Item Value Reference Range Interpretation Comments SARS-CoV-2 Rapid ID NOW Not Detected Not Detected (test code = 41107-2) ROBBY (test code = ROBBY) ID NOW COVID-19 Assay is an isothermal nucleic acid amplification test intended for the qualitative detection of nucleic acid from SARS-CoV-2 viral RNA in nasopharyngeal (SHEET ROLLER OPERATOR) specimens. It is used under Emergency Use Authorization (EUA) by FDA. The limit of detection (LOD) of the assay is 125 Genome Equivalents/mL. A positive result is indicative of the presence of SARS-CoV-2 RNA. ?Clinical correlation with patient history and other diagnostic information is necessary to determine patient infection status. A negative (Not Detected) result does not preclude SARS-CoV-2 infection. In patients with clinical symptoms and other tests that are consistent with SARS-CoV-2 infection, negative results should be treated as presumptive negative and a new specimen should be tested with alternative PCR molecular test. Invalid: Please collect a new specimen for repeat patient testing if clinically indicated. Lab Interpretation Normal (test code = 08179-6) [facility] [id number] 06:04:00 Test Item Value Reference Range Interpretation Comments POCT PREG (test code = 1605) negative On board controls acceptable with C present Line (test code = 3574) Lab Interpretation (test code = Normal 94368-1) [facility]"
[2022-02-06] MEDS ORDERED: IBUPROFEN 200 MG TAB PO ONE (19:34)
--- NOTE | 2022-02-06 20:26 | ER ---
Nurse's Notes [facility] Name: Taya Cha Age: 21 yrs Sex: Female : 2000 Arrival Date: 02/06/2022 Time: 19:02 Bed 11 Private MD: Diagnosis: Influenza due to identified novel influenza A virus Presentation: 02/06 19:20 Chief complaint: Patient states: I have a fever that started at 1200, DAVID, feel weak, jb4 congested,have a runny nose, cough, and a sore throat. I have been around others who have been sick. Coronavirus screen: Client presents with at least one sign or symptom that may indicate coronavirus-19. Standard/surgical mask placed on the client. Provider contacted for isolation considerations. Ebola Screen: No symptoms or risks identified at this time. Initial Sepsis Screen: Does the patient meet any 2 criteria? HR > 90 bpm. Yes Does the patient have a suspected source of infection? No. Patient's initial sepsis screen is negative. Risk Assessment: Do you want to hurt yourself or someone else? Patient reports no desire to harm self or others. Onset of symptoms was February 06, 2022. Transition of care: patient was not received from another setting of care. 19:20 Method Of Arrival: Ambulatory jb4 19:20 Acuity: MED 4 jb4 Historical: - Allergies: 19:21 Zithromax (rash); jb4 - Home Meds: 19:21 None [Active]; jb4 - PMHx: 19:21 None; jb4 - PSHx: 19:21 Tonsillectomy; wisdom teeth removed; jb4 - Immunization history:: Adult Immunizations up to date, phizer x3. - Social history:: Smoking status: unknown. Screenin:39 Abuse screen: Denies threats or abuse. Nutritional screening: No deficits noted. jb4 Tuberculosis screening: No symptoms or risk factors identified. Fall Risk None identified. Assessment: 19:26 General: Appears in no apparent distress. comfortable, Behavior is calm, cooperative, jb4 appropriate for age. Pain: Complains of pain in headache, sore throat. Neuro: Level of Consciousness is awake, alert, obeys commands, Oriented to person, place, time, situation. Cardiovascular: Patient's skin is warm and dry. Respiratory: Airway is patent Respiratory effort is even, unlabored, Respiratory pattern is regular, symmetrical. GI: No signs and/or symptoms were reported involving the gastrointestinal system. : No signs and/or symptoms were reported regarding the genitourinary system. EENT: No signs and/or symptoms were reported regarding the EENT system. Derm: Skin is intact, Skin is pink, warm \T\ dry. Musculoskeletal: Circulation, motion, and sensation intact. Range of motion: intact in all extremities. 20:39 Reassessment: Patient appears in no apparent distress at this time. Patient and/or jb4 family updated on plan of care and expected duration. Pain level reassessed. Patient is alert, oriented x 3, equal unlabored respirations, skin warm/dry/pink. Vital Signs: 19:20 BP 105 / 72; Pulse 136; Resp 18; Temp 99.5; Pulse Ox 96% on R/A; Weight 72.57 kg (R); jb4 Height 5 ft. 3 in. (160.02 cm) (R); 19:25 Temp 101.3(O); jb4 20:39 BP 102 / 67; Pulse 109; Resp 16; Temp 100.0(O); Pulse Ox 96% on R/A; jb4 19:20 Body Mass Index 28.34 (72.57 kg, 160.02 cm) jb4 ED Course: 19:02 Patient arrived in ED. jj6 19:03 Clementine Rodney FNP-C is [facility]. kb 19:03 Alfonso Costa MD is Attending Physician. kb 19:20 Alfredito Duran, RN is Primary Nurse. jb4 19:21 Triage completed. jb4 19:21 Arm band placed on right wrist. jb4 20:39 Patient has correct armband on for positive identification. Bed in low position. Call jb4 light in reach. Side rails up X 1. 20:39 No provider procedures requiring assistance completed. Patient did not have IV access jb4 during this emergency room visit. Administered Medications: 19:29 Drug: Ibuprofen 600 mg Route: PO; jb4 20:40 Follow up: Response: No adverse reaction jb4 Medication: 20:39 VIS not applicable for this client. jb4 Outcome: 20:25 Discharge ordered by . kb 20:39 Discharged to home ambulatory. jb4 20:39 Condition: stable 20:39 Discharge instructions given to patient, Instructed on discharge instructions, follow up and referral plans. medication usage, Demonstrated understanding of instructions, follow-up care, medications, Prescriptions given X 1. 20:40 Patient left the ED. jb4 Signatures: Clementine Rodney, MITER GRINDER OPERATOR-C MITER GRINDER OPERATOR-Alfredito Whelan, RN RN jb4 Zahida Stallings jj6
--- NOTE | 2022-02-06 20:26 | EDPHYS ---
Physician Documentation [facility] Name: Taya Cha Age: 21 yrs Sex: Female : 2000 Arrival Date: 02/06/2022 Time: 19:02 Bed 11 Private MD: ED Physician Alfonso Costa HPI: 02/06 20:35 This 21 yrs old Female presents to ER via Ambulatory with complaints of kb Headache, Sore Throat, Fever, Congestion. 20:35 The patient or guardian reports cough, that is intermittent, described as mild, flu kb symptoms, low-grade fever, myalgias. Onset: The symptoms/episode began/occurred yesterday. Severity of symptoms: At their worst the symptoms were moderate, in the emergency department the symptoms are unchanged. Modifying factors: The symptoms are alleviated by nothing, the symptoms are aggravated by nothing. Associated signs and symptoms: Pertinent positives: fever, rhinorrhea, sore throat. The patient has not experienced similar symptoms in the past. The patient has not recently seen a physician. Pt reports fever, cough, congestion, headache, sore throat since yesterday. Historical: - Allergies: 19:21 Zithromax (rash); jb4 - Home Meds: 19:21 None [Active]; jb4 - PMHx: 19:21 None; jb4 - PSHx: 19:21 Tonsillectomy; wisdom teeth removed; jb4 - Immunization history:: Adult Immunizations up to date, phizer x3. - Social history:: Smoking status: unknown. ROS: 20:36 Abdomen/GI: Negative for abdominal pain, nausea, vomiting, diarrhea, and constipation. kb 20:36 Constitutional: Positive for body aches, chills, fatigue, fever, malaise. 20:36 ENT: Positive for rhinorrhea, sinus congestion, sore throat. 20:36 Respiratory: Positive for cough. 20:36 Neuro: Positive for headache. 20:36 All other systems are negative. Exam: 20:36 Constitutional: This is a well developed, well nourished patient who is awake, alert, kb and in no acute distress. Head/Face: Normocephalic, atraumatic. ENT: Moist Mucous membranes Cardiovascular: Regular rate and rhythm with a normal S1 and S2. No gallops, murmurs, or rubs. No pulse deficits. Respiratory: Respirations even and unlabored. No increased work of breathing. Talking in full sentences Abdomen/GI: Soft, non-tender. No distention Skin: Warm, dry with normal turgor. Normal color. MS/ Extremity: Pulses equal, no cyanosis. Neurovascular intact. Full, normal range of motion. Neuro: Awake and alert, GCS 15, oriented to person, place, time, and situation. Moves all extremities. Normal gait. Psych: Awake, alert, with orientation to person, place and time. Behavior, mood, and affect are within normal limits. Vital Signs: 19:20 BP 105 / 72; Pulse 136; Resp 18; Temp 99.5; Pulse Ox 96% on R/A; Weight 72.57 kg (R); jb4 Height 5 ft. 3 in. (160.02 cm) (R); 19:25 Temp 101.3(O); jb4 20:39 BP 102 / 67; Pulse 109; Resp 16; Temp 100.0(O); Pulse Ox 96% on R/A; jb4 19:20 Body Mass Index 28.34 (72.57 kg, 160.02 cm) jb4 MDM: 19:10 Patient medically screened. kb 20:32 Data reviewed: vital signs, nurses notes. Data interpreted: Pulse oximetry: on room air kb is 96 %. Interpretation: normal. Counseling: I had a detailed discussion with the patient and/or guardian regarding: the historical points, exam findings, and any diagnostic results supporting the discharge/admit diagnosis, lab results, the need for outpatient follow up, a family practitioner, to return to the emergency department if symptoms worsen or persist or if there are any questions or concerns that arise at home. 02/06 19:10 Order name: Flu; Complete Time: 19:59 kb 02/06 19:10 Order name: Strep; Complete Time: 19:59 kb 02/06 19:10 Order name: COVID-19 SARS RT PCR (Document "Date of Onset" if Symptomatic); Complete kb Time: 20:25 02/06 19:59 Order name: Throat Culture EDMS Administered Medications: 19:29 Drug: Ibuprofen 600 mg Route: PO; jb4 20:40 Follow up: Response: No adverse reaction jb4 Disposition Summary: 02/06/22 20:25 Discharge Ordered Location: Home kb Condition: Stable kb Diagnosis - Influenza due to identified novel influenza A virus kb Followup: kb - With: Emergency Department - When: As needed - Reason: Worsening of condition Followup: kb - With: Private Physician - When: 2 - 3 days - Reason: Recheck today's complaints, Continuance of care, Re-evaluation by your physician Discharge Instructions: - Discharge Summary Sheet kb - Influenza, Adult, [id number] kb Forms: - Medication Reconciliation Form kb - Thank You Letter kb - Antibiotic Education kb - Prescription Opioid Use kb - Work release form jb4 Prescriptions: - Tamiflu 75 mg Oral Capsule - take 1 tablet by ORAL route every 12 hours for 5 days; 10 tablet; Refills: 0, kb Product Selection Permitted Signatures: Dispatcher [employer] EDClementine Warren, BETTINA-C BETTINA-Alfredito Whelan, RN RN jb4
[2022-02-06 20:48] VITALS: O2SAT 96
[2022-02-06 20:52] VITALS: BP 102/67; TEMP 100
== END 2022-02-06 20:40 | disposition home or self-care (01) ==
LOC: ER 18:58
DX: J10.1 Influenza due to other identified influenza virus with other respiratory manifestations (principal); Z20.822 Contact with and (suspected) exposure to COVID-19; Z88.1 Allergy status to other antibiotic agents
CPT/HCPCS: 87070; 87081; 87804 ×2; 99283; U0003

== ENCOUNTER 2022-04-29 15:24 | Emergency (ER) | payer OTHER ==
--- OUTSIDE RECORDS SUMMARY | 2022-04-29 15:29 | XMS REPORT | Continuity of Care Document ---
:2000 Author Organization [facility] t Address [address] [place] [address] [address]. Kh[address] [place] [address] Care Team Providers Name Role Phone Toni Kendrick Primary Care Physician [phone] Daina Dickey Attending Clinician Unavailable Ayla Upton MD Attending Clinician AYLA UPTON Attending Clinician Unavailable Doctor Unassigned, [place] Attending Clinician Unavailable Andrew Nance Attending Clinician ANDREW CASTILLO Attending Clinician Unavailable Tr Rudolph Attending Clinician Payers Payer Name Policy Type Policy Number Effective Date Expiration Date S ource Problems Condition Condition Condition Status Onset Resolution Last Treating Co mments Source Name Details Category Date Date Treatment Clinician Date No known No known Disease Unive rs active active ity of problems problems [facility] Allergies, Adverse Reactions, Alerts Allergy Allergy Status Severity Reaction(s) Onset Inactive Treating Comm ents Source Name Type Date Date Clinician Zithroma Propensi Active x - Oral ty to 3-11 adverse 00:00: reaction 00 to drug Zithroma Propensi Active x ty to 7 adverse 00:00: reaction 00 to drug Azithrom Propensi Active Rash Univer s ycin ty to 02-13 ity of adverse 00:00: [place] reaction 00 Medical s Branch AZITHROM DRUG Active Rash 2008- Univers YCIN INGREDI 02-13 ity of 00:00: [place] 00 Medical Branch Zithroma Adverse Active rash, Common x Reaction itching and Spi rit swelling - [facility] Social History Social Habit Start Date Stop Date Quantity Comments Source Exposure to Not sure [facility]-CoV-2 [facility] (event) Branch Alcohol intake 2021-04-22 2021-04-22 Current University of 00:00:00 00:00:00 non-drinker of [facility] alcohol [place] (finding) Tobacco use and 2012-11-06 2012-11-06 Never used Universit y of exposure 00:00:00 00:00:00 [facility] Tobacco Comment 2012-11-06 2012-11-06 N/A Universit y of 00:00:00 00:00:00 [facility] Sex Assigned At [birth year] Universit y of 00:00:00 00:00:00 [facility] Smoking Status Start Date Stop Date Source Never smoker [facility] Medications Ordered Filled Start Stop Current Ordering Indication Dosage Frequency Signature Comments Components Source Medication Medication Date Date Medication? Clinician (SIG) Name Name TAKE 1 No 75 CAPSULE BY 8-23 MOUTH EVERY 00:00: 12 HOURS 00 FOR 5 DAYS &lt 2021-0 No 75 8-15 00:00: 00 Lexapro 10 2021-0 No 1mg mg tablet 4-06 00:00: 00 Dose 2021-0 No Unknown 4-06 00:00: 00 Dose 2021-0 No Unknown 4-06 00:00: 00 Dose 2021-0 No Unknown 4-06 00:00: 00 Dose 2021-0 No Unknown 4-06 00:00: 00 Dose 2021-0 No Unknown 4-06 00:00: 00 Dose 2021-0 No Unknown 4-06 00:00: 00 Dose 2021-0 No Unknown 4-06 00:00: 00 Dose 2021-0 No Unknown 4-06 00:00: 00 Dose 2021-0 No Unknown 4-06 00:00: 00 Dose 2021-0 No Unknown 4-06 00:00: 00 Dose 2021-0 No Unknown 4-06 00:00: 00 Dose 2022-0 No Unknown 4-06 00:00: 00 Dose 2022-0 No Unknown 4-06 00:00: 00 Dose 2022-0 No Unknown 4-06 00:00: 00 Dose 2022-0 No Unknown 4-06 00:00: 00 Dose 2022-0 No Unknown 4-06 00:00: 00 Dose 2022-0 No Unknown 4-06 00:00: 00 Dose 2022-0 No Unknown 4-06 00:00: 00 Dose 2022-0 No Unknown 4-05 00:00: 00 Dose 2022-0 No Unknown 4-05 00:00: 00 Dose 2022-0 No Unknown 4-05 00:00: 00 Dose 2022-0 No Unknown 4-05 00:00: 00 Dose 2022-0 No Unknown 4-05 00:00: 00 Dose 2022-0 No Unknown 4-05 00:00: 00 Dose 2022-0 No Unknown 3-29 00:00: 00 Dose 2022-0 No Unknown 3-29 00:00: 00 Dose 2022-0 No Unknown 3-29 00:00: 00 Dose 2022-0 No Unknown 3-29 00:00: 00 Dose 2022-0 No Unknown 3-29 00:00: 00 Dose 2022-0 No Unknown 3-29 00:00: 00 Dose 2022-0 No Unknown 3-29 00:00: 00 Dose 2022-0 No Unknown 3-29 00:00: 00 Dose 2022-0 No Unknown 3-29 00:00: 00 Dose 2022-0 No Unknown 3-29 00:00: 00 Dose 2022-0 No Unknown 3-29 00:00: 00 Dose 2022-0 No Unknown 3-29 00:00: 00 Dose 2022-0 No Unknown 3- 00:00: 00 Dose 2022-0 No Unknown 3- 00:00: 00 Dose 2022-0 No Unknown 3-11 00:00: 00 Dose 2022-0 No Unknown 3- 00:00: 00 Dose 2022-0 No Unknown 3- 00:00: 00 Dose 2022-0 No Unknown 3-11 00:00: 00 Dose 2022-0 No Unknown 3-11 00:00: 00 Dose 2022-0 No Unknown 3-11 00:00: 00 Dose 2022-0 No Unknown 3-11 00:00: 00 metronidazo 0 No 1mg le 500 mg 4-10 tablet 00:00: 00 ketorolac 2019-08- No 15mg 15 mg, Unive rs (TORADOL) 09-16 Slow IV ity of injection 01:26: 01:42 Push, [place] 15 mg 00 :00 ONCE, 1 Medical dose, [facility] Branch 07/16/20 at 1930, RADHA
[facility] Restricted medication : MALCOLMDIMITRI PAZMINISTERIO ondansetron 2019-08 2020- No 4mg 4 mg, Slow Univers (ZOFRAN 09-16 IV Push, ity of (PF)) 00:10: 01:01 ONCE, 1 [place] injection 4 00 :00 dose, [facility] Med ical mg 07/16/20 Branch at 1815, RADHA famotidine 2019-08- No 20mg 20 mg, Univ ers (PEPCID 09-16 Slow IV ity of (PF)) 00:10: 01:02 Push, [place] injection 00 :00 ONCE, 1 Medical 20 mg dose, [facility] Branch 07/16/20 at 1815, RADHA famotidine 2019-08 Yes [id number] 40mg Take 1 Univers (PEPCID) 40 1-19 tablet by ity of mg tablet 00:00: mouth [place] 00 daily. Medical Branch ondansetron 2019-08 Yes [id number] 4mg Take 1 Univers (ZOFRAN) 4 1-19 tablet by ity of mg tablet 00:00: mouth [place] 00 every 8 Medical (eight) Branch hours as needed for Nausea and Vomiting (N/V). methocarbam 2019-08 Yes [id number] 500mg Take 1 Univers oL 1-19 tablet by ity of (ROBAXIN) 00:00: mouth 3 [place] 500 mg 00 (three) Medical tablet times Branch daily as needed for Pain (scale 4-6). ibuprofen 2019-08 Yes [id number] 600mg Take 1 Univers 600 mg 1-19 tablet by ity of tablet 00:00: mouth [place] 00 every 8 Medical (eight) Branch hours as needed for Pain (scale 4-6). famotidine 2019-08 Yes [id number] 40mg Take 1 Univers (PEPCID) 40 1-19 tablet by ity of mg tablet 00:00: mouth [place] 00 daily. Medical Branch ondansetron 2019-08 Yes [id number] 4mg Take 1 Univers (ZOFRAN) 4 1-19 tablet by ity of mg tablet 00:00: mouth [place] 00 every 8 Medical (eight) Branch hours as needed for Nausea and Vomiting (N/V). methocarbam 2019- Yes [id number] 500mg Take 1 Univers oL 1-19 tablet by ity of (ROBAXIN) 00:00: mouth 3 [place] 500 mg 00 (three) Medical tablet times Branch daily as needed for Pain (scale 4-6). ibuprofen 2019-08 Yes [id number] 600mg Take 1 Univers 600 mg 1-19 tablet by ity of tablet 00:00: mouth [place] 00 every 8 Medical (eight) Branch hours as needed for Pain (scale 4-6). famotidine 2019-08 Yes [id number] 40mg Take 1 Univers (PEPCID) 40 1-19 tablet by ity of mg tablet 00:00: mouth [place] 00 daily. Medical Branch ondansetron 2019-08 Yes [id number] 4mg Take 1 Univers (ZOFRAN) 4 1-19 tablet by ity of mg tablet 00:00: mouth [place] 00 every 8 Medical (eight) Branch hours as needed for Nausea and Vomiting (N/V). methocarbam 2019-08 Yes [id number] 500mg Take 1 Univers oL 1-19 tablet by ity of (ROBAXIN) 00:00: mouth 3 [place] 500 mg 00 (three) Medical tablet times Branch daily as needed for Pain (scale 4-6). ibuprofen 2019-08 Yes [id number] 600mg Take 1 Univers 600 mg 1-19 tablet by ity of tablet 00:00: mouth [place] 00 every 8 Medical (eight) Branch hours as needed for Pain (scale 4-6). famotidine 2019- Yes [id number] 40mg Take 1 Univers (PEPCID) 40 1-19 tablet by ity of mg tablet 00:00: mouth [place] 00 daily. Medical Branch ondansetron 2019-08 Yes [id number] 4mg Take 1 Univers (ZOFRAN) 4 1-19 tablet by ity of mg tablet 00:00: mouth [place] 00 every 8 Medical (eight) Branch hours as needed for Nausea and Vomiting (N/V). methocarbam 2019-08 Yes [id number] 500mg Take 1 Univers oL 1-19 tablet by ity of (ROBAXIN) 00:00: mouth 3 [place] 500 mg 00 (three) Medical tablet times Branch daily as needed for Pain (scale 4-6). ibuprofen 2019-08 Yes [id number] 600mg Take 1 Univers 600 mg 1-19 tablet by ity of tablet 00:00: mouth [place] 00 every 8 Medical (eight) Branch hours as needed for Pain (scale 4-6). famotidine 2019-08 Yes [id number] 40mg Take 1 Univers (PEPCID) 40 1-19 tablet by ity of mg tablet 00:00: mouth [place] 00 daily. Medical Branch ondansetron 2019-08 Yes [id number] 4mg Take 1 Univers (ZOFRAN) 4 1-19 tablet by ity of mg tablet 00:00: mouth [place] 00 every 8 Medical (eight) Branch hours as needed for Nausea and Vomiting (N/V). methocarbam 2019-08 Yes [id number] 500mg Take 1 Univers oL 1-19 tablet by ity of (ROBAXIN) 00:00: mouth 3 [place] 500 mg 00 (three) Medical tablet times Branch daily as needed for Pain (scale 4-6). ibuprofen 2019-08 Yes [id number] 600mg Take 1 Univers 600 mg 1-19 tablet by ity of tablet 00:00: mouth [place] 00 every 8 Medical (eight) Branch hours as needed for Pain (scale 4-6). famotidine 2019-08 Yes [id number] 40mg Take 1 Univers (PEPCID) 40 1-19 tablet by ity of mg tablet 00:00: mouth [place] 00 daily. Medical Branch ondansetron 2019-08 Yes [id number] 4mg Take 1 Univers (ZOFRAN) 4 1-19 tablet by ity of mg tablet 00:00: mouth [place] 00 every 8 Medical (eight) Branch hours as needed for Nausea and Vomiting (N/V). methocarbam 2019- Yes [id number] 500mg Take 1 Univers oL 1-19 tablet by ity of (ROBAXIN) 00:00: mouth 3 [place] 500 mg 00 (three) Medical tablet times Branch daily as needed for Pain (scale 4-6). ibuprofen 2019- Yes [id number] 600mg Take 1 Univers 600 mg 1-19 tablet by ity of tablet 00:00: mouth [place] 00 every 8 Medical (eight) Branch hours as needed for Pain (scale 4-6). famotidine 2019-08 Yes [id number] 40mg Take 1 Univers (PEPCID) 40 1-19 tablet by ity of mg tablet 00:00: mouth [place] 00 daily. Medical Branch ondansetron 2019-08 Yes [id number] 4mg Take 1 Univers (ZOFRAN) 4 1-19 tablet by ity of mg tablet 00:00: mouth [place] 00 every 8 Medical (eight) Branch hours as needed for Nausea and Vomiting (N/V). methocarbam 2019-08 Yes [id number] 500mg Take 1 Univers oL 1-19 tablet by ity of (ROBAXIN) 00:00: mouth 3 [place] 500 mg 00 (three) Medical tablet times Branch daily as needed for Pain (scale 4-6). ibuprofen 2019-08 Yes [id number] 600mg Take 1 Univers 600 mg 1-19 tablet by ity of tablet 00:00: mouth [place] 00 every 8 Medical (eight) Branch hours as needed for Pain (scale 4-6). naproxen 2018-0 No 1mg 500 mg 6-11 tablet 00:00: 00 cephalexin 2018-0 No 1mg 500 mg 6-11 capsule 00:00: 00 Flagyl Flagyl 2018-0 2019- No Anjali 1 tablet Com mon 12-26 05-08 [facility] 00:00: 00:00 - [facility] 00 :00 [facility] amoxicillin 2018-0 No 1mg 500 mg 3-01 tablet 00:00: 00 Augmentin 2017-0 No 1mg 875 mg-125 7-08 mg tablet 00:00: 00 amoxicillin 2017-0 No 1mg 500 mg 3-08 capsule 00:00: 00 promethazin 2017-0 No mg/5 mL e-DM 6.25 3-07 mg-15 mg/5 00:00: mL syrup 00 loratadine 2015-0 No 1mg 10 mg 9-02 tablet 00:00: 00 amoxicillin 2015-0 No 1mg 500 mg 9-02 capsule 00:00: 00 No known No Univers medications [facility] No known No Univers medications [facility] Immunizations Ordered Immunization Filled Immunization Date Status Commen ts Source Name Name meningococcal MCV4P 2022-04-19 Completed 00:00:00 Hep A, adult 2022-04-19 Completed 00:00:00 Moderna COVID-19 2021-09-04 Completed Vaccine 00:00:00 Moderna COVID-19 2021-01-07 Completed Vaccine 00:00:00 Moderna COVID-19 2020-12-10 Completed Vaccine 00:00:00 Influenza, seasonal, 2017-10-26 Completed inj 00:00:00 Meningococcal 2012-11-06 Completed University of Polysaccharide 00:00:00 [place] Medi arsen (groups A, C, Y and Branc h W-135) conjugate vaccine (MCV4P) TDAP 2012-11-06 Completed University of 00:00:00 [facility] Meningococcal 2012-11-06 Completed University of Polysaccharide 00:00:00 [place] Med[facility] arsen (groups A, C, Y and Branc h W-135) conjugate vaccine (MCV4P) TDAP 2012-11-06 Completed University of 00:00:00 [facility] Meningococcal 2012-11-06 Completed University of Polysaccharide 00:00:00 [place] Med[facility] arsen (groups A, C, Y and Branc h W-135) conjugate vaccine (MCV4P) TDAP 2012-11-06 Completed University of 00:00:00 [facility] Meningococcal 2012-11-06 Completed University of Polysaccharide 00:00:00 [place] Med[facility] arsen (groups A, C, Y and Branc h W-135) conjugate vaccine (MCV4P) TDAP 2012-11-06 Completed University of 00:00:00 [facility] Meningococcal 2012-11-06 Completed University of Polysaccharide 00:00:00 [place] Med[facility] arsen (groups A, C, Y and Branc h W-135) conjugate vaccine (MCV4P) TDAP 2012-11-06 Completed University of 00:00:00 [facility] Meningococcal 2012-11-06 Completed University of Polysaccharide 00:00:00 [place] Medi arsen (groups A, C, Y and Branc h W-135) conjugate vaccine (MCV4P) TDAP 2012-11-06 Completed University of 00:00:00 [facility] Meningococcal 2012-11-06 Completed University of Polysaccharide 00:00:00 [place] Medi arsen (groups A, C, Y and Branc h W-135) conjugate vaccine (MCV4P) TDAP 2012-11-06 Completed University of 00:00:00 [facility] Meningococcal 2012-11-06 Completed University of Polysaccharide 00:00:00 [place] Medi arsen (groups A, C, Y and Branc h W-135) conjugate vaccine (MCV4P) TDAP 2012-11-06 Completed University of 00:00:00 [facility] Meningococcal 2012-11-06 Completed University of Polysaccharide 00:00:00 [place] [facility] arsen (groups A, C, Y and Branc h W-135) conjugate vaccine (MCV4P) TDAP 2012-11-06 Completed University of 00:00:00 [facility] Varicella 2007-09-13 Completed University of (varivax)(chicken 00:00:00 [...] HEPATITIS A 2006-11-20 Completed University of 00:00:00 [facility] HEPATITIS A 2006-11-20 Completed University of 00:00:00 [facility] HEPATITIS A 2006-11-20 Completed University of 00:00:00 [facility] HEPATITIS A 2006-11-20 Completed University of 00:00:00 [facility] HEPATITIS A 2006-11-20 Completed University of 00:00:00 [facility] HEPATITIS A 2006-11-20 Completed University of 00:00:00 [facility] HEPATITIS A 2006-11-20 Completed University of 00:00:00 [place] [facility] HEPATITIS A 2006-11-20 Completed University of 00:00:00 [place] [facility] HEPATITIS A 2006-11-20 Completed University of 00:00:00 [place] [facility] HEPATITIS A 2006-02-23 Completed University of 00:00:00 [place] [facility] HEPATITIS A 2006-02-23 Completed University of 00:00:00 [place] [facility] HEPATITIS A 2006-02-23 Completed University of 00:00:00 [place] [facility] HEPATITIS A 2006-02-23 Completed University of 00:00:00 [place] [facility] HEPATITIS A 2006-02-23 Completed University of 00:00:00 [place] [facility] HEPATITIS A 2006-02-23 Completed University of 00:00:00 [place] [facility] HEPATITIS A 2006-02-23 Completed University of 00:00:00 [place] [facility] HEPATITIS A 2006-02-23 Completed University of 00:00:00 [place] [facility] HEPATITIS A 2006-02-23 Completed University of 00:00:00 [facility] Branch DTAP 2005-07-25 Completed University of 00:00:00 [facility] MMR 2005-07-25 Completed University of 00:00:[address] [facility] Branch Polio (IPV/OPV) 2005-07-25 Completed Universit y of 00:00:[address] [facility] DTAP 2005-07-25 Completed University of 00:00:00 [facility] MMR 2005-07-25 Completed University of 00:00:00 [facility] Polio (IPV/OPV) 2005-07-25 Completed Universit y of 00:00:[address] [facility] Branch DTAP 2005-07-25 Completed University of 00:00:00 [facility] MMR 2005-07-25 Completed University of 00:00:00 [place] [facility] Polio (IPV/OPV) 2005-07-25 Completed Universit y of 00:00:00 [facility] Branch DTAP 2005-07-25 Completed University of 00:00:00 [facility] MMR 2005-07-25 Completed University of 00:00:00 [facility] Polio (IPV/OPV) 2005-07-25 Completed Universit y of 00:00:00 [facility] Branch DTAP 2005-07-25 Completed University of 00:00:00 [facility] MMR 2005-07-25 Completed University of 00:00:00 [facility] Polio (IPV/OPV) 2005-07-25 Completed Universit y of 00:00:00 [facility] DTAP 2005-07-25 Completed University of 00:00:00 [facility] MMR 2005-07-25 Completed University of 00:00:00 [facility] Polio (IPV/OPV) 2005-07-25 Completed Universit y of 00:00:00 [facility] DTAP 2005-07-25 Completed University of 00:00:00 [facility] MMR 2005-07-25 Completed University of 00:00:00 [facility] Polio (IPV/OPV) 2005-07-25 Completed Universit y of 00:00:00 [facility] DTAP 2005-07-25 Completed University of 00:00:00 [facility] MMR 2005-07-25 Completed University of 00:00:00 [facility] Polio (IPV/OPV) 2005-07-25 Completed Universit y of 00:00:00 [facility] DTAP 2005-07-25 Completed University of 00:00:00 [facility] MMR 2005-07-25 Completed University of 00:00:00 [facility] Polio (IPV/OPV) 2005-07-25 Completed Universit y of 00:00:00 [facility] Pneumococcal 7 2003-03-14 Completed University of Conjugate, [...] Branch DTAP 2002-11-12 Completed University of 00:00:00 [facility] Pneumococcal 7 2002-11-12 Completed University of Conjugate, PCV7 00:00:00 [place] [facility] (Prevnar7) Branch DTAP 2002-11-12 Completed University of 00:00:00 [facility] Pneumococcal 7 2002-11-12 Completed University of Conjugate, PCV7 00:00:00 [place] [facility] (Prevnar7) Branch DTAP 2002-11-12 Completed University of 00:00:00 [facility] Pneumococcal 7 2002-11-12 Completed University of Conjugate, PCV7 00:00:00 [place] [facility] (Prevnar7) Branch DTAP 2002-11-12 Completed University of 00:00:00 [facility] Pneumococcal 7 2002-11-12 Completed University of Conjugate, PCV7 00:00:00 [place] [facility] (Prevnar7) Branch DTAP 2002-11-12 Completed University of 00:00:00 [facility] Pneumococcal 7 2002-11-12 Completed University of Conjugate, PCV7 00:00:00 [place] [facility] (Prevnar7) Branch DTAP 2002-11-12 Completed University of 00:00:00 [facility] Pneumococcal 7 2002-11-12 Completed University of Conjugate, PCV7 00:00:00 [place] [facility] (Prevnar7) Branch DTAP 2002-11-12 Completed University of 00:00:00 [facility] Pneumococcal 7 2002-11-12 Completed University of Conjugate, PCV7 00:00:00 [place] [facility] (Prevnar7) Branch DTAP 2002-11-12 Completed University of 00:00:00 [facility] Pneumococcal 7 2002-11-12 Completed University of Conjugate, PCV7 00:00:00 [place] [facility] (Prevnar7) Branch DTAP 2002-11-12 Completed University of 00:00:00 [facility] Pneumococcal 7 2002-11-12 Completed University of Conjugate, PCV7 00:00:00 [place] [facility] (Prevnar7) Branch HIB 4 Dose Schedule 2002-07-23 Completed Unive rsity of 00:00:00 [facility] MMR 2002-07-23 Completed University of 00:00:00 [facility] Varicella 2002-07-23 Completed University of (varivax)(chicken 00:00:00 [facility] edical pox) Branch HIB 4 Dose Schedule 2002-07-23 Completed Unive rsity of 00:00:00 [facility] MMR 2002-07-23 Completed University of 00:00:00 [facility] Varicella 2002-07-23 Completed University of (varivax)(chicken 00:00:00 [place] [facility] pox) Branch HIB 4 Dose Schedule 2002-07-23 Completed Unive rsity of 00:00:00 [facility] MMR 2002-07-23 Completed University of 00:00:00 [facility] Varicella 2002-07-23 Completed University of (varivax)(chicken 00:00:00 [place] [facility] edical pox) Branch HIB 4 Dose Schedule 2002-07-23 Completed Unive rsity of 00:00:00 [facility] MMR 2002-07-23 Completed University of 00:00:00 [facility] Varicella 2002-07-23 Completed University of (varivax)(chicken 00:00:00 [place] M edical pox) Branch HIB 4 Dose Schedule 2002-07-23 Completed Unive rsity of 00:00:00 [facility] MMR 2002-07-23 Completed University of 00:00:00 [facility] Varicella 2002-07-23 Completed University of (varivax)(chicken 00:00:00 [place] M edical pox) Branch HIB 4 Dose Schedule 2002-07-23 Completed Unive rsity of 00:00:00 [facility] MMR 2002-07-23 Completed University of 00:00:00 [facility] Varicella 2002-07-23 Completed University of (varivax)(chicken 00:00:00 [place] M edical pox) Branch HIB 4 Dose Schedule 2002-07-23 Completed Unive rsity of 00:00:00 [facility] MMR 2002-07-23 Completed University of 00:00:00 [facility] Varicella 2002-07-23 Completed University of (varivax)(chicken 00:00:00 [place] M edical pox) Branch HIB 4 Dose Schedule 2002-07-23 Completed Unive rsity of 00:00:00 [facility] MMR 2002-07-23 Completed University of 00:00:00 [facility] Varicella 2002-07-23 Completed University of (varivax)(chicken 00:00:00 [place] M edical pox) Branch HIB 4 Dose Schedule 2002-07-23 Completed Unive rsity of 00:00:00 [facility] MMR 2002-07-23 Completed University of 00:00:00 [place] [facility] Varicella 2002-07-23 Completed University of (varivax)(chicken 00:00:00 [place] [facility] pox) Branch Hep B, Adol or Pedi 2002-04-19 Completed Unive rsity of Dosage 00:00:00 [facility] Polio (IPV/OPV) 2002-04-19 Completed Universit y of 00:00:[address] [facility] Branch Hep B, Adol or Pedi 2002-04-19 Completed Unive rsity of Dosage 00:00:00 [facility] Polio (IPV/OPV) 2002-04-19 Completed Universit y of 00:00:00 [facility] Hep B, Adol or Pedi 2002-04-19 Completed Unive rsity of Dosage 00:00:00 [facility] Polio (IPV/OPV) 2002-04-19 Completed Universit y of 00:00:00 [facility] Hep B, Adol or Pedi 2002-04-19 Completed Unive rsity of Dosage 00:00:00 [facility] Polio (IPV/OPV) 2002-04-19 Completed Universit y of 00:00:00 [facility] Hep B, Adol or Pedi 2002-04-19 Completed Unive rsity of Dosage 00:00:00 [facility] Polio (IPV/OPV) 2002-04-19 Completed Universit y of 00:00:00 [facility] Hep B, Adol or Pedi 2002-04-19 Completed Unive rsity of Dosage 00:00:00 [facility] Polio (IPV/OPV) 2002-04-19 Completed Universit y of 00:00:00 [facility] Hep B, Adol or Pedi 2002-04-19 Completed Unive rsity of Dosage 00:00:00 [facility] Polio (IPV/OPV) 2002-04-19 Completed Universit y of 00:00:00 [facility] Hep B, Adol or Pedi 2002-04-19 Completed Unive rsity of Dosage 00:00:00 [facility] Polio (IPV/OPV) 2002-04-19 Completed Universit y of 00:00:00 [facility] Hep B, Adol or Pedi 2002-04-19 Completed Unive rsity of Dosage 00:00:00 [facility] Polio (IPV/OPV) 2002-04-19 Completed Universit y [facility] 00:00:00 [facility] [facility] DTAP 2002-02-19 Completed University of 00:00:00 [facility] HIB 4 Dose Schedule 2002-02-19 Completed Unive rsity of 00:00:[address] [facility] Hep B, Adol or Pedi 2002-02-19 Completed Unive rsity of Dosage 00:00:00 [facility] DTAP 2002-02-19 Completed University of 00:00:00 [facility] HIB 4 Dose Schedule 2002-02-19 Completed Unive rsity of 00:00:00 [facility] Hep B, Adol or Pedi 2002-02-19 Completed Unive rsity of Dosage 00:00:00 [facility] DTAP 2002-02-19 Completed University of 00:00:00 [facility] HIB 4 Dose Schedule 2002-02-19 Completed Unive rsity of 00:00:00 [facility] Hep B, Adol or Pedi 2002-02-19 Completed Unive rsity of Dosage 00:00:00 [facility] DTAP 2002-02-19 Completed University [facility] 00:00:00 [facility] HIB 4 Dose Schedule 2002-02-19 Completed Unive rsity of 00:00:00 [facility] Hep B, Adol or Pedi 2002-02-19 Completed Unive rsity of Dosage 00:00:00 [facility] DTAP 2002-02-19 Completed University of 00:00:00 [facility] HIB 4 Dose Schedule 2002-02-19 Completed Unive rsity of 00:00:00 [facility] Hep B, Adol or Pedi 2002-02-19 Completed Unive rsity of Dosage 00:00:00 [facility] DTAP 2002-02-19 Completed University of 00:00:00 [facility] HIB 4 Dose Schedule 2002-02-19 Completed Unive rsity of 00:00:00 [facility] Hep B, Adol or Pedi 2002-02-19 Completed Unive rsity of Dosage 00:00:00 [facility] DTAP 2002-02-19 Completed University of 00:00:00 [facility] HIB 4 Dose Schedule 2002-02-19 Completed Unive rsity of 00:00:00 [facility] Hep B, Adol or Pedi 2002-02-19 Completed Unive rsity of Dosage 00:00:00 [facility] DTAP 2002-02-19 Completed University of 00:00:00 [facility] HIB 4 Dose Schedule 2002-02-19 Completed Unive rsity of 00:00:00 [facility] Hep B, Adol or Pedi 2002-02-19 Completed Unive rsity of Dosage 00:00:00 [facility] DTAP 2002-02-19 Completed University of 00:00:00 [facility] HIB 4 Dose Schedule 2002-02-19 Completed Unive rsity of 00:00:00 [facility] Hep B, Adol or Pedi 2002-02-19 Completed Unive rsity of Dosage 00:00:00 [facility] HIB 4 Dose Schedule 2001 Completed Unive rsity of 00:00:00 [facility] Pneumococcal 7 2001 Completed University of Conjugate, PCV7 00:00:00 [facility] Polio (IPV/OPV) 2001 Completed Universit y of 00:00:00 [facility] DTAP 2001 Completed University of 00:00:00 [facility] HIB 4 Dose Schedule 2001 Completed Unive rsity of 00:00:00 [facility] Pneumococcal 7 2001 Completed University of Conjugate, PCV7 00:00:00 [place] [facility] Polio (IPV/OPV) 2001 Completed Universit y of 00:00:00 [facility] DTAP 2001 Completed University of 00:00:00 [facility] HIB 4 Dose Schedule 2001 Completed Unive rsity of 00:00:00 [facility] Pneumococcal 7 2001 Completed University of Conjugate, PCV7 00:00:00 [facility] Polio (IPV/OPV) 2001 Completed Universit y of 00:00:00 [facility] DTAP 2001 Completed University of 00:00:00 [facility] HIB 4 Dose Schedule 2001 Completed Unive rsity of 00:00:00 [facility] Pneumococcal 7 2001 Completed University of Conjugate, PCV7 00:00:00 [facility] Polio (IPV/OPV) 2001 Completed Universit y of 00:00:00 [facility] DTAP 2001 Completed University of 00:00:00 [facility] HIB 4 Dose Schedule 2001 Completed Unive rsity of 00:00:00 [facility] Pneumococcal 7 2001 Completed University of Conjugate, PCV7 00:00:00 [place] [facility] Polio (IPV/OPV) 2001 Completed Universit y of 00:00:00 [facility] DTAP 2001 Completed University of 00:00:00 [facility] HIB 4 Dose Schedule 2001 Completed Unive rsity of 00:00:00 [facility] Pneumococcal 7 2001 Completed University of Conjugate, PCV7 00:00:00 [facility] Polio (IPV/OPV) 2001 Completed Universit y of 00:00:00 [facility] DTAP 2001 Completed University of 00:00:00 [facility] HIB 4 Dose Schedule 2001 Completed Unive rsity of 00:00:00 [facility] Pneumococcal 7 2001 Completed University of Conjugate, PCV7 00:00:00 [facility] Polio (IPV/OPV) 2001 Completed Universit y of 00:00:00 [facility] DTAP 2001 Completed University of 00:00:00 [facility] HIB 4 Dose Schedule 2001 Completed Unive rsity of 00:00:00 [facility] Pneumococcal 7 2001 Completed University of Conjugate, PCV7 00:00:00 [facility] Polio (IPV/OPV) 2001 Completed Universit y of 00:00:00 [facility] DTAP 2001 Completed [facility] of 00:00:00 [facility] HIB 4 Dose Schedule 2001 Completed Unive rsity of 00:00:00 [facility] Pneumococcal 7 2001 Completed University of Conjugate, PCV7 00:00:00 [facility] Polio (IPV/OPV) 2001 Completed Universit y of 00:00:00 [facility] DTAP 2001 Completed University of 00:00:00 [facility] HIB 4 Dose Schedule 2001 Completed Unive rsity of 00:00:00 [facility] Pneumococcal 7 2001 Completed University of Conjugate, PCV7 00:00:00 [facility] Polio (IPV/OPV) 2001 Completed Universit y of 00:00:00 [facility] DTAP 2001 Completed University of 00:00:00 [facility] HIB 4 Dose Schedule 2001 Completed Unive rsity of 00:00:00 [facility] Pneumococcal 7 2001 Completed University of Conjugate, PCV7 00:00:00 [facility] Polio (IPV/OPV) 2001 Completed Universit y of 00:00:00 [facility] DTAP 2001 Completed University of 00:00:00 [facility] HIB 4 Dose Schedule 2001 Completed Unive rsity of 00:00:00 [facility] Pneumococcal 7 2001 Completed University of Conjugate, PCV7 00:00:00 [facility] Polio (IPV/OPV) 2001 Completed Universit y of 00:00:00 [facility] DTAP 2001 Completed University of 00:00:00 [facility] HIB 4 Dose Schedule 2001 Completed Unive rsity of 00:00:00 [facility] Pneumococcal 7 2001 Completed University of Conjugate, PCV7 00:00:00 [facility] Polio (IPV/OPV) 2001 Completed Universit y of 00:00:00 [facility] DTAP 2001 Completed University of 00:00:00 [facility] HIB 4 Dose Schedule 2001 Completed Unive rsity of 00:00:00 [facility] Pneumococcal 7 2001 Completed University of Conjugate, PCV7 00:00:00 [facility] Polio (IPV/OPV) 2001 Completed Universit y of 00:00:00 [facility] DTAP 2001 Completed University of 00:00:00 [facility] HIB 4 Dose Schedule 2001 Completed Unive rsity of 00:00:00 [facility] Pneumococcal 7 2001 Completed University of Conjugate, PCV7 00:00:00 [facility] Polio (IPV/OPV) 2001 Completed Universit y of 00:00:00 [facility] DTAP 2001 Completed University of 00:00:00 [facility] HIB 4 Dose Schedule 2001 Completed Unive rsity of 00:00:00 [facility] Pneumococcal 7 2001 Completed University of Conjugate, PCV7 00:00:00 [facility] Polio (IPV/OPV) 2001 Completed Universit y of 00:00:00 [facility] DTAP 2001 Completed University of 00:00:00 [facility] HIB 4 Dose Schedule 2001 Completed Unive rsity of 00:00:00 [facility] Pneumococcal 7 2001 Completed University of Conjugate, PCV7 00:00:00 [place] [facility] Polio (IPV/OPV) 2001 Completed Universit y of 00:00:00 [facility] DTAP 2001 Completed University of 00:00:00 [facility] HIB 4 Dose Schedule 2001 Completed Unive rsity of 00:00:00 [facility] Pneumococcal 7 2001 Completed University of Conjugate, PCV7 00:00:00 [facility] Polio (IPV/OPV) 2001 Completed Universit [facility] of 00:00:00 [facility] DTAP 2001 Completed [facility] of 00:00:00 [facility] Hep B, Adol or Pedi 2001 Completed Unive rsity of Dosage 00:00:00 [facility] Hep B, Adol or Pedi 2001 Completed Unive rsity of Dosage 00:00:00 [facility] Hep B, Adol or Pedi 2001 Completed Unive rsity of Dosage 00:00:00 [facility] Hep B, Adol or Pedi 2001 Completed Unive rsity of Dosage 00:00:00 [facility] Hep B, Adol or Pedi 2001 Completed Unive rsity of Dosage 00:00:00 [facility] Hep B, Adol or Pedi 2001 Completed Unive rsity of Dosage 00:00:00 [facility] Hep B, Adol or Pedi 2001 Completed Unive rsity of Dosage 00:00:00 [facility] Hep B, Adol or Pedi 2001 Completed Unive rsity of Dosage 00:00:00 [facility] Hep B, Adol or Pedi 2001 Completed Unive rsity of Dosage 00:00:00 [facility] Vital Signs Vital Name Observation Time Observation Value Comments Source Systolic blood 2021-04-22 20:24:00 122 mm[Hg] Univer sity of pressure [facility] Diastolic blood 2021-04-22 20:24:00 70 mm[Hg] Unive rsity of pressure [facility] Heart rate 2021-04-22 20:24:00 66 /min Universi ty [facility] Body temperature 2021-04-22 20:24:00 37 Kiley [facility] Respiratory rate 2021-04-22 20:24:00 18 /min [facility] Body height 2021-04-22 20:24:00 162[facility]6 cm [facility] Body weight 2021-04-22 20:24:00 73.483 kg [facility] BMI 2021-04-22 20:24:00 27.81 kg/m2 [facility] Systolic blood 2020-07-17 01:00:00 102 mm[Hg] Univer sity of pressure [facility] Diastolic blood 2020-07-17 01:00:00 63 mm[Hg] Unive rsity of pressure [facility] Heart rate 2020-07-17 01:00:00 72 /min [facility] Respiratory rate 2020-07-17 01:00:00 18 /min [facility] Oxygen saturation in 2020-07-17 01:00:00 99 /min [facility] Arterial blood by [facility] Pulse oximetry Branch Body temperature 2020-07-16 23:19:00 37.06 Kiley [facility] Body weight 2020-07-16 23:19:00 63.504 kg Universi ty [facility] Systolic blood 2020-02-26 06:03:00 134 mm[Hg] Univer sity of pressure [facility] Diastolic blood 2020-02-26 06:03:00 81 mm[Hg] Unive rsity of pressure [facility] Heart rate 2020-02-26 06:03:00 96 /min Universi ty [facility] Body temperature 2020-02-26 06:03:00 37.39 Kiley [facility] Respiratory rate 2020-02-26 06:03:00 18 /min [facility] Oxygen saturation in 2020-02-26 06:03:00 99 /min [facility] Arterial blood by [facility] Pulse oximetry Branch Body weight 2020-02-26 05:50:00 63.504 kg [facility] Respiratory Rate 2022-04-20 09:16:00 21.00 /min BP Systolic 2022-04-20 09:16:00 100 mm[Hg] BP Diastolic 2022-04-20 09:16:00 60 mm[Hg] Weight Measured 2022-04-20 09:16:00 165.80 pounds Height Measured 2022-04-20 09:16:00 66.00 inches Body Temperature 2022-04-20 09:16:00 98.60 degrees Heart Rate 2022-04-20 09:16:00 95.00 /min BP Systolic 2020-12-03 16:15:00 113 mm[Hg] BP Diastolic 2020-12-03 16:15:00 69 mm[Hg] Weight Measured 2020-12-03 16:15:00 152.40 pounds Height Measured 2020-12-03 16:15:00 66.00 inches Body Temperature 2020-12-03 16:15:00 98.10 degrees Heart Rate 2020-12-03 16:15:00 90.00 /min Respiratory Rate 2020-12-03 16:15:00 17.00 /min BP Systolic 2019-02-05 13:59:00 102 mm[Hg] BP Diastolic 2019-02-05 13:59:00 67 mm[Hg] Weight Measured 2019-02-05 13:59:00 148.60 pounds Height Measured 2019-02-05 13:59:00 65.00 inches Body Temperature 2019-02-05 13:59:00 97.90 degrees Heart Rate 2019-02-05 13:59:00 80.00 /min Respiratory Rate 2019-02-05 13:59:00 16.00 /min BP Systolic 2017-10-26 08:10:00 99 mm[Hg] BP Diastolic 2017-10-26 08:10:00 71 mm[Hg] Weight Measured 2017-10-26 08:10:00 137.40 pounds Height Measured 2017-10-26 08:10:00 65.00 inches Body Temperature 2017-10-26 08:10:00 98.00 degrees Heart Rate 2017-10-26 08:10:00 76.00 /min Respiratory Rate 2017-10-26 08:10:00 16.00 /min Weight Measured 2017-03-04 15:52:00 140.20 pounds Height Measured 2017-03-04 15:52:00 63.00 inches Body Temperature 2017-03-04 15:52:00 98.40 degrees Heart Rate 2017-03-04 15:52:00 78.00 /min Respiratory Rate 2017-03-04 15:52:00 BP Systolic 2017-03-04 15:52:00 109 mm[Hg] BP Diastolic 2017-03-04 15:52:00 60 mm[Hg] BP Systolic 2016-11-01 08:11:00 124 mm[Hg] BP Diastolic 2016-11-01 08:11:00 81 mm[Hg] Weight Measured 2016-11-01 08:11:00 135.40 pounds Height Measured 2016-11-01 08:11:00 63.00 inches Body Temperature 2016-11-01 08:11:00 100.90 degrees Heart Rate 2016-11-01 08:11:00 112.00 /min Respiratory Rate 2016-11-01 08:11:00 18.00 /min BP Systolic 2016-05-12 17:02:00 106 mm[Hg] BP Diastolic 2016-05-12 17:02:00 65 mm[Hg] Weight Measured 2016-05-12 17:02:00 140.40 pounds Height Measured 2016-05-12 17:02:00 63.00 inches Body Temperature 2016-05-12 17:02:00 98.40 degrees Heart Rate 2016-05-12 17:02:00 79.00 /min Respiratory Rate 2016-05-12 17:02:00 16.00 /min BP Systolic 2016-04-29 13:52:00 118 mm[Hg] BP Diastolic 2016-04-29 13:52:00 72 mm[Hg] Weight Measured 2016-04-29 13:52:00 140.80 pounds Height Measured 2016-04-29 13:52:00 63.00 inches Body Temperature 2016-04-29 13:52:00 98.70 degrees Heart Rate 2016-04-29 13:52:00 98.00 /min Respiratory Rate 2016-04-29 13:52:00 16.00 /min Procedures Procedure Date / Time Performing Clinician Source Performed CONSENT/REFUSAL FOR 2021-04-22 19:55:34 Doctor Unassigned, [facility] DIAGNOSIS AND TREATMENT [facility] XR ABDOMEN ACUTE SERIES 2020-07-17 00:33:12 Chuck [facility] XR LUMBAR SPINE 3 VW 2020-07-17 00:33:12 [facility] POCT TEST 2020-07-16 23:42:00 Chuck [facility] LIPASE 2020-07-16 23:40:00 Chuck [facility] HEPATIC FUNCTION PANEL 2020-07-16 23:40:00 Chuck [facility] ([id number]) ([facility],BU/BC,ALT,AST,ALK PHOS) BASIC METABOLIC PANEL 2020-07-16 23:40:00 Chuck [facility] (NA, K, CL, CO2, GLUCOSE, Medica l Branch BUN, CREATININE, CA) CBC WITH DIFF 2020-07-16 23:40:00 Chuck [facility] URINALYSIS 2020-07-16 23:40:00 Chuck [facility] CONSENT/REFUSAL FOR 2020-07-16 23:11:01 Doctor Unasswilliam, [facility] DIAGNOSIS AND TREATMENT [facility] XR CHEST 1 VW 2020-02-26 06:30:51 Tr Uribe [facility] COVID-19 (ID NOW RAPID 2020-02-26 06:05:00 Tr Uribe [facility] 2020-02-26 06:04:00 Tr Uribe [facility] EKG-12 LEAD 2020-02-26 05:55:48 Tr Uribe [facility] ASSIGNMENT OF BENEFITS 2020-02-26 05:33:11 Doctor Unassigned, [facility] NOTICE OF PRIVACY 2020-02-26 05:32:57 Doctor Unassigned, [facility] PRACTICES [facility] EMERGENCY SERVICES 2020-02-25 05:01:00 Doctor Unassigned, [facility] AGREEMENTS AND [facility] AUTHORIZATIONS Plan of Care Planned Activity Planned Date Details Comments Source Goal Plan of Care Note [code = 15573-4] Goal Plan of Care Note [code = 21643-4] Goal Plan of Care Note [code = 26306-9] Goal Plan of Care Note [code = 26164-6] Goal Plan of Care Note [code = 29829-4] Goal Plan of Care Note [code = 30611-2] Goal Plan of Care Note [code = 63803-1] Goal Plan of Care Note [code = 36978-3] Goal Plan of Care Note [code = 61071-5] Goal Plan of Care Note [code = 27724-2] Goal Plan of Care Note [code = 62130-0] Goal Plan of Care Note [code = 27011-2] Goal Plan of Care Note [code = 32340-5] Goal Plan of Care Note [code = 25968-0] Goal Plan of Care Note [code = 17564-0] Goal Plan of Care Note [code = 35334-2] Goal Plan of Care Note [code = 01206-1] Goal Plan of Care Note [code = 32427-2] Goal Plan of Care Note [code = 44316-9] Encounters Start End Encounter Admission Attending Care Care Encounter Source Date/Time Date/Time Type Type Clinicians Facility Department ID 2021-09-[address] [facility] [id number] Common 12:49:12 Daina [address] [facility] 2022-04-20 2022-04-20 Outpatient [id number] 00:00:00 00:00:00 Visit [id number] 2021-05-20 2021-05-20 Telephone Adum, [facility] [id number] Univers 00:00:00 00:00:00 Ayla Nikki Azar [id number] [id number] [id number] [facility] 134 [facility] 2021-04-22 2021-04-22 [facility] [id number] Univers 14:56:28 16:14:14 Visit Ayla Azar [id number] [place] [id number] In [address] 2021-04-22 2021-04-22 [facility] [id number] Univers 15:00:00 15:00:00 AYLA ity [facility] 2021-04-22 2021-04-22 Orders Doctor COLE [id number] Univers 00:00:00 00:00:00 Only Unassigned, PETER [id number] [place] [facility] 4.2.7.2.686 Gustavo as [id number] [facility] 009 Branch 2021-02-18 2021-02-18 Outpatient STLMLC [facility] [id number] Common 00:00:00 00:00:00 [facility] 2020-07-16 2020-07-16 Emergency [facility] [id number] Univers 17:15:00 20:24:00 Andrew Azar [id number] [place] [id number] [facility] 084 Branch 2020-07-16 2020-07-16 Emergency X [facility] ERT [id number] Univers 17:11:00 17:11:00 SHINTA ity of [facility] 2020-02-26 2020-02-26 Emergency [place], [facility] [id number] Univers 00:47:54 02:05:00 Tr Azar [id number] i ty [place] 4.2.7.[address] [facility] [id number] [facility] 084 Branch 2020-02-26 2020-02-26 Emergency X [facility] ERT [id number] Univers 00:35:00 00:35:00 ity of [facility] 2020-02-25 2020-02-25 Orders Doctor COLE [id number] Univers 00:00:00 00:00:00 Only Unassigned, PETER [id number] ity of [facility] 4.2.7.2.686 [facility] [id number] [facility] 009 Branch 2018-12-25 2018-12-25 [facility] [id number] Common 15:25:00 15:25:00 [facility] 2018-12-18 2018-12-18 [facility] [id number] Common 11:20:00 11:20:00 [facility] Results Test Description Test Time Test Comments Results Result Comments Source LIPID PANEL 2022-04-23 06:58:39 Test Item Value Reference Range Interpretation Comme nts CHOLESTEROL (test code = 2210) 177 MG/DL <200 TRIGLYCERIDES (test code = 2232) 157 MG/DL <150 H HDL CHOLESTEROL (test code = 46 MG/DL >39 2220) CALC LDL CHOL (test code = 2237) 104 MG/DL <100 H NOTE: CALCULATED LDL IS BASED ON CÉSAR-LANDEROS METHOD WHICHINCLUDES A DJUSTABLE TRIGLYCERIDE:VL DL CHOLESTEROL RATIO.THIS FACT OR VARIES BY MEASURED TRIGLY CERIDE AND NON-HDLCHOLESTE ROL CONCENTRATIONS WITH INCREASED CALCULATED LDL SEENIN HIGHER T RIGLYCERIDE OR LOWER NON-HDL S PECIMENS. FOR MOREINFORMATION , SEE CLIENT ANNOUNCEMENT AT [email or web address] RATIO LDL/HDL (test code = 2.26 RATIO <3.22 UNLESS OTHERWISE INDICATED, ALL 2238) TESTING PERFORM ED ATCLINICAL PATHOLOGY [facility], [facility]. [address] [place] [address] LABORATORY DIRE CTOR: TRAE GALEAS M.D. [place] NUMBER [id number] [facility] [place]. [id number] VAGINAL PATHOGENS DNA [id number] 00:00:00 Test Item Value Reference Range Interpretation Comments BARB SPECIES (test code = ) NEGATIVE G. VAGINALIS (test code = 86394) POSITIVE T. VAGINALIS (test code = ) NEGATIVE VAGINAL PATHOGENS DNA [id number] 00:00:00 Test Item Value Reference Range Interpretation Comments BARB SPECIES (test code = ) NEGATIVE G. VAGINALIS (test code = ) POSITIVE T. VAGINALIS (test code = ) NEGATIVE [id number] 00:20:00 Test Item Value Reference Range Interpretation Comments APPEARANCE (test code = Hazy Clear A 7587560350) COLOR (test code = Umu Yellow A 1025624051) PH (test code = 4.8-8.0 3583989576) SP GRAVITY (test code = 1.003-1.030 0179519588) GLU U QUAL (test code = Normal Normal 3824068261) BLOOD (test code = Negative Negative INTERFERE NCE FROM [id number]) ASCORBIC ACID M AY CAUSE FALSE NEG ATIVE RESULT KETONES (test code = Negative Negative 6232214923) PROTEIN (test code = Negative Negative 2887-8) UROBILIN (test code = Normal Normal 3629397048) BILIRUBIN (test code = Negative Negative 4342597054) NITRITE (test code = Negative Negative 7417998952) LEUK ALVIN (test code = Negative Negative 6445343419) RBC/HPF (test code = See_Comment [Autom ated message] 8909670433) The system [employer] generated this result transmitted ref erence range: 0 - 3 HP F. The reference range was not used to int erpret this result as normal/abnormal . WBC/HPF (test code = See_Comment [Autom ated message] 7135852236) The system [employer] generated this result transmitted ref erence range: 0 - 5 HP F. The reference range was not used to int erpret this result as normal/abnormal . BACTERIA (test code = Moderate Negative A 5796777305) MUCOUS (test code = Marked Negative LPF A 0439794641) SQ EPITH (test code = HPF 0469377416) CA OXALATE (test code = See_Comment H [Au tomated message] 5156566944) The system [employer] generated this result transmitted ref erence range: <=1 HPF. The reference range was not used to int erpret this result as normal/abnormal . Lab Interpretation (test Abnormal code = 86520-9) [facility] Metabolic Panel (NA, K, CL, CO2, GLUCOSE, BUN, CREATININE, CA)2020-07-17 00:04:00 Test Item Value Reference Range Interpretation Comments NA (test code = 138 mmol/L 135-145 0571161280) K (test code = 4.0 mmol/L 3.5-5 0310569375) CL (test code = 103 mmol/L 98-108 7867164205) CO2 TOTAL (test code = 27 mmol/L 23-31 9198754295) AGAP (test code = 2-16 6433750855) BUN (test code = 10 mg/dL 7-23 0669880687) GLUCOSE (test code = 91 mg/dL 70-110 5641540235) CREATININE (test code 0.70 mg/dL 0.5-1.04 = 8120041032) CALCIUM (test code = 9.9 mg/dL 8.6-10.6 4387236061) eGFR Calculation mL/min/1.73m2 (Non-) (test code = 0954141263) eGFR Calculation mL/min/1.73m2 () (test code = 6277529870) ROBBY (test code = ROBBY) Association of [...] or urine or abnormalities in imaging tests). [facility] (ALB, T.PRO, BILI T, BU/BC, ALT, AST, ALK PHOS)2020-07-17 00:04:00 Test Item Value Reference Range Interpretation Comments TOTAL BILI (test code = 7082084735) 0.6 mg/dL 0.1-1.1 BILI UNCON (test code = 9532756096) 0.6 mg/dL 0.1-1.1 BILI CONJ (test code = 6875018300) 0.0 mg/dL 0-0.3 T PROTEIN (test code = 4858993020) 7.8 g/dL 6.3-8.2 ALBUMIN (test code = 6265946352) 4.4 g/dL 3.5-5 ALK PHOS (test code = 9259837122) 84 U/L 34-122 ALTv (test code = 1742-6) 35 U/L 5-35 AST(SGOT) (test code = 2357694162) 28 U/L 13-40 Lab Interpretation (test code = Normal 23351-3) [facility] [id number] 00:04:00 Test Item Value Reference Range Interpretation Comments LIPASE (test code = 0623099062) 87 U/L 0-220 Lab Interpretation (test code = Normal 40794-6) [facility] with [id number] 23:53:00 Test Item Value Reference Range Interpretation Comments WBC (test code = See_Comment [Automated 6690-2) message] The sy stem which generated this result transmitted reference range : 4.50 - 13.50 10*3/?L. The reference range was not used to interpret this result as normal/abnormal . RBC (test code = See_Comment [Automated 789-8) message] The sy stem which generated this [...] RDW-SD (test code = 38.7 fL 38.5-49 95695-5) RDW-CV (test code = 13.1 % 11.5-14 788-0) PLT (test code = See_Comment [Automated 777-3) message] The sy stem which generated this result transmitted reference range : 135 - 361 10*3/ ?L. The reference r cesar was not used to interpret this result as normal/abnormal . MPV (test code = 9.5 fL 9.4-13.3 03198-1) NRBC/100 WBC (test See_Comment [Automat ed code = 7391119597) message] The system which generated this result transmitted reference range : 0.0 - 10.0 /100 WBCs. The refer ence range was not u sed to interpret th is result as normal/abnormal . NRBC x10^3 (test code <0.01 See_Comment [Auto mated = 6741572008) message] The s ystem which generated this result transmitted reference range : 10*3/?L. The reference range was not used to interpret this result as normal/abnormal . GRAN MAT (NEUT) % 63.1 % (test code = 770-8) IMM GRAN % (test code 0.30 % = 7132618814) LYMPH % (test code = 27.4 % 736-9) MONO % (test code = 6.6 % 5905-5) EOS % (test code = 2.0 % 713-8) BASO % (test code = 0.6 % 706-2) GRAN MAT x10^3(ANC) 5.04 10*3/uL 1.5-10.3 (test code = 8869746061) IMM GRAN x10^3 (test <0.03 0-0.06 code = 0613817124) LYMPH x10^3 (test code 2.19 10*3/uL 0.7-7.4 = 731-0) MONO x10^3 (test code 0.53 10*3/uL 0-0.5 H = 742-7) EOS x10^3 (test code = 0.16 10*3/uL 0-0.4 711-2) BASO x10^3 (test code 0.05 10*3/uL 0-0.1 = 704-7) Lab Interpretation Abnormal (test code = 78228-0) [facility] [id number] 23:42:00 Test Item Value Reference Range Interpretation Comments POCT PREG (test code = 1605) negative On board controls acceptable with present C Line (test code = 3574) POCT PREG LOT # (test code = 3575) [id number] POCT PREG TEST DATE (test 2021-12-25 code = 3576) Lab Interpretation (test code = Normal 00410-3) [facility]OVID[facility] (ID NOW RAPID TESTING)2020-02-26 06:32:00 Test Item Value Reference Range Interpretation Comments SARS-CoV-2 Rapid ID NOW Not Detected Not Detected (test code = 11055-4) ROBBY (test code = ROBBY) ID NOW COVID-19 Assay is an isothermal nucleic acid amplification test intended for the qualitative detection of nucleic acid from SARS-CoV-2 viral RNA in nasopharyngeal (CUSTOMER ORDERS CLERK) specimens. It is used under Emergency Use [...] indicated. Lab Interpretation Normal (test code = 63397-6) [facility] [id number] 06:04:00 Test Item Value Reference Range Interpretation Comments POCT PREG (test code = 1605) negative On board controls acceptable with C present Line (test code = 3574) Lab Interpretation (test code = Normal 31624-2) [facility]"
--- NOTE | 2022-04-29 15:47 | EDPHYS ---
Physician Documentation [facility] Name: Taya Cha Age: 21 yrs Sex: Female : 2000 Arrival Date: 04/29/2022 Time: 15:25 Bed Waiting Private MD: Daina Dickey ED Physician Yordan Arriaga HPI: 04/29 23:29 This 21 yrs old Female presents to ER via Ambulatory with complaints of Foot kb Pain. 23:29 The patient presents with pain, tenderness. The complaints affect the right foot. kb Context: The problem was sustained at home, resulted from new shoes, the patient can fully bear weight, the patient is able to ambulate. Onset: The symptoms/episode began/occurred last week. Modifying factors: The symptoms are alleviated by nothing, the symptoms are aggravated by nothing. Associated signs and symptoms: The patient has no apparent associated signs or symptoms. Severity of symptoms: At their worst the symptoms were mild, in the emergency department the symptoms are unchanged. The patient has not experienced similar symptoms in the past. The patient has not recently seen a physician. "I have corns on my toes that started when I started wearing new shoes.". 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 - Social history:: Smoking status: Patient denies any tobacco usage or history of. ROS: 23:27 Constitutional: Negative for fever, chills, and weight loss. kb 23:29 Skin: Positive for corns on right toes. kb 23:29 All other systems are negative. Exam: 23:28 Constitutional: This is a well developed, well nourished patient who is awake, alert, kb and in no acute distress. Head/Face: Normocephalic, atraumatic. ENT: Moist Mucous membranes Cardiovascular: Regular rate and rhythm with a normal S1 and S2. No gallops, murmurs, or rubs. No pulse deficits. Respiratory: Respirations even and unlabored. No increased work of breathing. Talking in full sentences MS/ Extremity: Pulses equal, no cyanosis. Neurovascular intact. Full, normal range of motion. Neuro: Awake and alert, GCS 15, oriented to person, place, time, and situation. Moves all extremities. Normal gait. Psych: Awake, alert, with orientation to person, place and time. Behavior, mood, and affect are within normal limits. 23:28 Skin: corns noted to right toes. Vital Signs: 15:45 BP 126 / 71; Pulse 90; Resp 16; Temp 98.0(TE); Pulse Ox 99% on R/A; Weight 73.48 kg bm7 (R); Height 5 ft. 3 in. (160.02 cm); Pain 5/10; 15:45 Body Mass Index 28.70 (73.48 kg, 160.02 cm) bm7 MDM: 15:45 Patient medically screened. 23:28 Data reviewed: vital signs, nurses notes. Data interpreted: Pulse oximetry: on room air kb is 99 %. Interpretation: normal. Counseling: I had a detailed discussion with the patient and/or guardian regarding: the historical points, exam findings, and any diagnostic results supporting the discharge/admit diagnosis, the need for outpatient follow up, a educational interpreter, to return to the emergency department if symptoms worsen or persist or if there are any questions or concerns that arise at home. Administered Medications: No medications were administered Disposition Summary: 04/29/22 15:47 Discharge Ordered Location: Home Condition: Stable Diagnosis - Corns and callosities kb Followup: kb - With: Emergency Department - When: As needed - Reason: Worsening of condition Followup: kb - With: Private Physician - When: 2 - 3 days - Reason: Recheck today's complaints, Continuance of care, Re-evaluation by your physician Discharge Instructions: - Discharge Summary Sheet kb - Corns and Calluses kb Forms: - Medication Reconciliation Form kb - Thank You Letter kb - Antibiotic Education kb - Prescription Opioid Use kb Addendum: 05/03/2022 07:36 Co-signature as Attending Physician, Yordan Arriaga MD. r n Signatures: Clementine Rodney, BETTINA-C MANAGER LOCAL-Yordan Valderrama MD MD rn McCarthy, Sarah, ARMEN RN bm7
--- NOTE | 2022-04-29 15:47 | ER ---
Nurse's Notes [facility] Name: Taya Cha Age: 21 yrs Sex: Female : 2000 Arrival Date: 04/29/2022 Time: 15:25 Bed Waiting Private MD: Daina Dickey Diagnosis: Corns and callosities Presentation: 04/29 15:43 Chief complaint: Patient states: I have corns on some of my toes on my right foot. [facility] Coronavirus screen: At this time, the client does not indicate any symptoms associated with coronavirus-19. Ebola Screen: No symptoms or risks identified at this time. Initial Sepsis Screen: Does the patient meet any 2 criteria? No. Patient's initial sepsis screen is negative. Does the patient have a suspected source of infection? No. Patient's initial sepsis screen is negative. Risk Assessment: Do you want to hurt yourself or someone else? Patient reports no desire to harm self or others. Onset of symptoms is unknown. Care prior to arrival: None. 15:43 Method Of Arrival: Ambulatory [facility] 15:43 Acuity: MED 5 7 Triage Assessment: 15:46 General: Appears in no apparent distress. uncomfortable, Behavior is calm, cooperative, bm7 appropriate for age. Pain: Complains of pain in right foot Pain does not radiate. EENT: No deficits noted. No signs and/or symptoms were reported regarding the EENT system. Neuro: No deficits noted. Cardiovascular: No deficits noted. Respiratory: No deficits noted. GI: No deficits noted. No signs and/or symptoms were reported involving the gastrointestinal system. : No deficits noted. No signs and/or symptoms were reported regarding the genitourinary system. Derm: Skin is intact, is healthy with good turgor, Skin is dry, Skin is pink, warm \T\ dry. Skin temperature is warm redness and irritation between the toes on the right foot. Musculoskeletal: Reports pain in right foot. 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 Historical: - Allergies: 15:46 Zithromax (rash); bm7 - Home Meds: 15:46 None [Active]; bm7 - PMHx: 15:46 None; bm7 - PSHx: 15:46 Tonsillectomy; wisdom teeth removed; bm7 - Immunization history:: Adult Immunizations up to date, Client reports receiving the 2nd dose of the Covid vaccine, Client reports receiving the 1st dose of the Covid vaccine. - Social history:: Smoking status: Patient denies any tobacco usage or history of. Screenin:56 Abuse screen: Denies threats or abuse. Nutritional screening: No deficits noted. bm7 Tuberculosis screening: No symptoms or risk factors identified. Fall Risk None identified. Assessment: 15:56 Reassessment: No changes from previously documented assessment. bm7 Vital Signs: 15:45 BP 126 / 71; Pulse 90; Resp 16; Temp 98.0(TE); Pulse Ox 99% on R/A; Weight 73.48 kg bm7 (R); Height 5 ft. 3 in. (160.02 cm); Pain 5/10; 15:45 Body Mass Index 28.70 (73.48 kg, 160.02 cm) bm7 ED Course: 15:25 Patient arrived in ED. am2 15:26 Daina Dickey FNP-C is Private Physician. am2 15:36 Clementine Rodney FNP-C is [facility]. kb 15:36 Yordan Arriaga MD is Attending Physician. kb 15:44 Triage completed. bm7 15:45 Arm band placed on right wrist. bm7 15:56 Patient has correct armband on for positive identification. bm7 15:56 No provider procedures requiring assistance completed. Patient did not have IV access bm7 during this emergency room visit. Administered Medications: No medications were administered Medication: 15:56 VIS not applicable for this client. bm7 Outcome: 15:47 Discharge ordered by . kb 15:56 Discharged to home ambulatory. bm7 15:56 Condition: good 15:56 Discharge instructions given to patient, Instructed on discharge instructions, Demonstrated understanding of instructions. 15:56 Patient left the ED. bm7 Signatures: Clementine Rodney FNP-C FNP-Ckb Moreno, Amanda am2 Sarah García, RN RN bm7
[2022-04-29 17:02] VITALS: BP 126/71; TEMP 98; O2SAT 99
== END 2022-04-29 15:56 | disposition home or self-care (01) ==
LOC: ER 15:24
DX: L84 Corns and callosities (principal); Z88.1 Allergy status to other antibiotic agents
CPT/HCPCS: 99281